=== PATIENT | female | born 1945 | race Caucasian/White ===

== ENCOUNTER 2022-11-25 14:56 | Outpatient (AMB) | payer OTHER, MEDICAID, SELFPAY ==
[2022-11-25 15:04] VITALS: BP 128/80; PULSE 77; O2SAT 97; BMI 25.3
--- NOTE | 2022-11-25 15:04 | A.OFFPC_ITS ---
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 Would like to discuss neurology, audiology and derm referrals, ENT referrals Difficulty Sleeping PMHx: Diabetes, HTN, HLD, Imbalance, Fatty liver, Chronic vertigo, Chronic epigastric pain, Chronic L shoulder pain. Vitamin D deficiency, L shoulder brustitis, R rotator cuff injury SurgHx: Gallbladder FHx: Pt uncertain. Niece: Breast Cancer SocHx: Nonsmoker, quit 2007. R leg weakness & numbness. has appt. with Neurology [facility] Medical History (Updated 11/25/22 @ 17:19 by Yonny Tripathi MD) Anxiety Depression Type 2 diabetes mellitus Surgical History (Updated 11/25/22 @ 15:27 by Sol Tim CMA) No pertinent past surgical history Family History (Updated 11/25/22 @ 15:30 by Sol Tim CMA) Sister Substance abuse Social History Housing: Apartment Patient Tobacco Use Status: Former Tobacco user e-Cigarette/Vaping Use: Never Used service: No Current occupational status: retired Cognitive needs: No Hearing needs: No Vision needs: Yes (needs to have eyes checked.) Questionnaire PHQ-9 Over the last 2 weeks, how often have you been bothered by any of the following problems? 1. Little interest or pleasure in doing things: not at all 2. Feeling down, depressed, or hopeless: nearly every day 3. Trouble falling or staying asleep, or sleeping too much: nearly every day 4. Feeling tired or having little energy: nearly every day 5. Poor appetite or overeating: nearly every day 6. Feeling bad about yourself - or that you are a failure or have let yourself or your family down: not at all 7. Trouble concentrating on things, such as reading the newspaper or watching television: not at all 8. Moving or speaking so slowly that other people could have noticed. Or the opposite - being so fidgety or restless that you have been moving around a lot m ore than usual: not at all [id number] - PHQ-9 Billing: Yes (Patient declines last question at this time.) Source: Developed by Drs. Ej Montiel, Adrianna Moore, Fabio Gastelum and colleagues, with an educational carmen from [email or web address]. Thrive Questionnaire I am a: Patient What is your living situation today?: I have a steady place to live Within the past 12 months, did the food you bought not last and you didn't have the money to get more?: Never true Within the past 12 months, did you worry whether your food would run out before you got money to buy more?: Never true Do you have trouble paying for medicines?: No Do you have trouble getting transportation to medical appointments?: No Do you have trouble paying your heating and electricity bill?: No Do you have trouble taking care of your child, family member or friend?: No Do you have trouble with day-to-day activities such as bathing, preparing meals, shopping, managing finances, etc.?: Yes Are you currently unemployed and looking for a job?: No Are you interested in more education?: No AUDIT C Alcohol Use Questionnaire (AUDIT-C) 1. How often do you have a drink containing alcohol?: Never 3. How often do you have six or more drinks on one occasion?: Never Total Score: 0 HANDY-7 AMB Questionnaire HANDY-7 Feeling nervous, anxious, or on edge: 3 = Nearly every day Not being able to stop or control worryin = Nearly every day Worrying too much about different things: 3 = Nearly every day Trouble relaxin = Nearly every day Being so restless that it is hard to sit still: 3 = Nearly every day Becoming easily annoyed or irritable: 3 = Nearly every day Feeling afraid as if something awful might happen: 3 = Nearly every day Total HANDY-7 score (0-4 normal; 5-9 mild; 10-14 moderate; 15-21 severe): 21 Source: Developed by Drs. Ej Montiel, Adrianna Moore, Fabio Gastelum and colleagues, with an educational carmen from [email or web address]. Physical exam (Primary Care) Vital Signs: Last Vital Signs Pulse 77 11/25/22 15:04 BP 128/80 11/25/22 15:04 Pulse Ox 97 11/25/22 15:04 Oxygen Delivery Method Room Air 11/25/22 15:04 BMI result Body Mass Index 25.3 Tobacco/Smoking Status: Tobacco use Status Tobacco use date assessed 11/25/22 11/25/22 15:15 Patient Tobacco Use Status Former Tobacco user 11/25/22 15:15 e-Cigarette/Vaping Use Never Used 11/25/22 15:15 Assessment and Plan Assessment & Plan (1) Chronic vertigo: Code(s): R42 - Dizziness and giddiness Plan: Patient says that she has had numerous rounds of vestibular rehab/physical therapy and was recommended to see ENT Referred to ENT (2) Imbalance: Code(s): R26.89 - Other abnormalities of gait and mobility Plan: Likely multifactoral; appears to have radicular symptoms on right low back and right leg with weakness and numbness. She notes that she has had EMG testing in the past though she does not know the results. Also as above has vertigo She has an appointment with Neurology. Will request office note (3) Type 2 diabetes mellitus: Code(s): E11.9 - Type 2 diabetes mellitus without complications Plan: Check labs (4) Hypertension: Code(s): I10 - Essential (primary) hypertension Plan: Blood pressure appears controlled (5) Fall: Code(s): W19.XXXA - Unspecified fall, initial encounter Plan: As above, frequent falls and imbalance Follow-up with Neurology (6) Diabetic neuropathy: Code(s): E11.40 - Type 2 diabetes mellitus with diabetic neuropathy, unspecified Plan: May have some diabetic neuropathy however the unilateral nature of her numbness and weakness in right lower extremity appears distinct from diabetic neuropathy. Will monitor and control diabetes (7) Lower extremity weakness: Code(s): R29.898 - Other symptoms and signs involving the musculoskeletal system Plan: As above, patient should follow-up with Neurology May benefit from physical therapy and we can discuss after her visit with Neurology (8) Difficulty sleeping: Code(s): G47.9 - Sleep disorder, unspecified Plan: Trial trazodone (9) Laboratory exam ordered as part of routine general medical examination: Code(s): Z00.00 - Encounter for general adult medical examination without abnormal findings Plan: Check labs Orders: Orders Comprehensive [place]. Panel Fast Today Z00.00 - Encounter for general adult medic al examination without abnormal findings Lipid Panel Today Z00.00 - Encounter for general adult medical examination without abnormal findings TSH reflex Free T4 Today Z00.00 - Encounter for general adult medical examination without abnormal findings Microalbumin, Random (w Creat) Today I10 - Essential (primary) hypertension Complete Blood Count Auto Diff Today Z00.00 - Encounter for general adult medical examination without abnormal findings UA and rflx microscopic Today Z00.00 - Encounter for general adult medical examination without abnormal findings Hemoglobin A1c Today R73.01 - Impaired fasting glucose Erythrocyte Sedimentation Rate Today M35.3 - Polymyalgia rheumatica Referrals Ear/Nose/Throat Referral R42 - Dizziness and giddiness Audiology Referral H91.90 - Unspecified hearing loss, unspecified ear Medications: New sitagliptin phosphate (Januvia) 100 mg PO DAILY 90 tabs 2RF 90 days sertraline 75 mg (1.5 x 50 mg) PO DAILY 90 days 135 tabs 2RF pravastatin 20 mg PO BEDTIME 90 days 90 tabs 2RF metformin 1,000 mg PO BID 180 tabs 3RF 90 days lisinopril 2.5 mg PO DAILY 90 days 90 tabs 3RF trazodone 50 mg PO BEDTIME PRN 30 tabs 0RF sleep 30 days nut.tx.gluc.intol,lac-free,soy (Glucerna oral liquid) 1 ea PO BID 7,110 mL 3RF 30 days Coding Level of Care Code New Pt Level 4 (74265) Diagnoses Chronic vertigo R42 Imbalance R26.89 Type 2 diabetes mellitus E11.9 Hypertension I10 Fall W19.XXXA Diabetic neuropathy E11.40 Lower extremity weakness R29.898 Difficulty sleeping G47.9 Laboratory exam ordered as part of routine general medical examination Z00.00
== END 2022-11-25 16:17 | disposition home or self-care (01) ==
PROVIDERS: PCP Family Medicine; Visit Provider Family Medicine
DX: R42 Dizziness and giddiness (principal); R26.89 Other abnormalities of gait and mobility; I10 Essential (primary) hypertension; W19.XXXA Unspecified fall, initial encounter; E11.40 Type 2 diabetes mellitus with diabetic neuropathy, unspecified; R29.898 Other symptoms and signs involving the musculoskeletal system; G47.9 Sleep disorder, unspecified; Z00.00 Encounter for general adult medical examination without abnormal findings
CPT/HCPCS: 99204

== ENCOUNTER 2023-01-27 11:00 | Outpatient (REF) | payer OTHER, MEDICAID, SELFPAY ==
[2023-01-27 14:17] LABS: MANUAL DIFF FLAG NO
[2023-01-27 14:21] LABS: Basophils Absolute Auto 0.1 X10*3/uL (0.0-0.2); Basophils Percent Auto 1.1 % (0-2); Eosinophils Absolute Auto 0.2 X10*3/uL (0.0-0.4); Eosinophils Percent Auto 2.8 % (0-4); Hematocrit 37.2 % (37.0-47.0); Imm Gran Abs Auto 0.04 X10*3/uL (0.00-0.03); Imm Gran Pct Auto 0.5 % (0.0-0.4); Lymphocytes Absolute Auto 1.8 X10*3/uL (1.2-4.9); Lymphocytes Percent Auto 23.8 % (20-40); Mean Corpuscular HGB Conc 32.3 g/dl (31.0-35.0); Mean Corpuscular Volume 89.9 fL (80.0-98.0); Mean Platelet Volume 10.5 fL (9.4-12.3); Monocytes Absolute Auto 0.5 X10*3/uL (0.1-1.2); Monocytes Percent Auto 6.6 % (2-11); Neutrophils Absolute Auto 4.9 x10*3/uL (2.0-8.3); Neutrophils Percent Auto 65.2 % (45-73); Platelet Count 222 X10*3/uL (160-400); Red Blood Count 4.14 X10*6/uL (4.20-5.50); Red Cell Distribution Width 12.6 % (11.0-16.0); White Blood Count 7.6 X10*3/uL (4.8-10.8)
[2023-01-27 14:41] LABS: Estimated Average Glucose 151 mg/dL; Hemoglobin A1c % 6.9 % (<6.0)
[2023-01-27 14:55] LABS: Alanine Aminotransferase 10 U/L (0-31); Albumin Level 4.2 g/dL (3.5-5.0); Alkaline Phosphatase 62 U/L (39-117); Anion Gap 13 (12-20); Aspartate Amino Transferase 16 U/L (5-31); Bilirubin Total 0.3 mg/dL (0.0-1.0); Blood Urea Nitrogen 11 mg/dL (9-16); Calcium 9.5 mg/dL (8.4-10.2); Carbon Dioxide 23 mmol/L (22-29); Chloride 108 mmol/L (96-108); Cholesterol 162 mg/dL (<200); Estimated Glomerular Filt Rate > 60; Glucose Fasting 206 mg/dL (60-99); HDL Cholesterol 52 mg/dL (>40); LDL Cholesterol Calculated 82 mg/dL (<100); Potassium 4.2 mmol/L (3.3-5.1); Sodium 140 mmol/L (135-145); Total Protein 6.8 g/dL (6.5-8.0); Triglycerides 141 mg/dL (<150)
[2023-01-27 15:03] LABS: TSH reflex Free T4 1.66 uIU/mL (0.32-4.0)
[2023-01-27 15:06] LABS: Erythrocyte Sedimentation Rate 36 MM/HR (0-20)
== END 2023-01-27 11:01 | disposition home or self-care (01) ==
LOC: HO.WFDLDS 11:00
PROVIDERS: Visit Provider Family Medicine
DX: Z00.00 Encounter for general adult medical examination without abnormal findings (principal); R73.01 Impaired fasting glucose; M35.3 Polymyalgia rheumatica; M54.2 Cervicalgia; R51.9 Headache, unspecified
CPT/HCPCS: 36415; 80053; 80061; 83036; 84443; 85025; 85652

== ENCOUNTER 2023-02-01 14:08 | Outpatient (AMB) | payer OTHER, SELFPAY ==
[2023-02-01 14:12] VITALS: BP 122/72; PULSE 76; O2SAT 96; BMI 26.2
--- NOTE | 2023-02-01 14:12 | MHC.PC.OV ---
Vital Signs 02/01/23 14:12 Height 5 ft 3 in Weight 148 lb BMI 26.2 BP 122/72 Blood Pressure Location Lt brachial Position Sitting Pulse 76 Pulse Source Pulse Oximeter Pulse Oximetry (%) 96 Intake Visit Reasons: CPE with f/u labs and health maintenance Intake Note: Patient is here for her physical today. Allergies codeine Allergy (Unknown, Verified 02/01/23 14:15) Unknown Medication List - Last Reconciled 02/01/23 by Yonny Tripathi MD blood sugar diagnostic (FreeStyle Lite Strips) As directed blood-glucose meter (FreeStyle Lite Meter kit) As directed lisinopril 2.5 mg PO DAILY 90 days melatonin-lemon balm leaf extr 10-1 mg 1 tab PO BEDTIME PRN metformin 1,000 mg PO BID 90 days nut.tx.gluc.intol,lac-free,soy (Glucerna oral liquid) 1 ea PO BID 30 days pravastatin 20 mg PO BEDTIME 90 days sertraline 75 mg (1.5 x 50 mg) PO DAILY 90 days sitagliptin phosphate (Januvia) 100 mg PO DAILY 90 days trazodone 50 mg PO BEDTIME PRN 30 days Tobacco use date assessed: 02/01/23 Fall risk assessment: 2 + Falls in past year Last assessed Fall Risk: 02/01/23 HPI CPE with f/u labs and health maintenance HPI Details 77 y/o female presents for a CPE with f/u labs and health maintenance. Labs were drawn 01/27/23. Reviewed labs with pt. Elevated fasting glucose of 206 and A1c 6.9%. She is on metformin 1000mg b.i.d. Triglycerides 141. TC 162. LDL 82. HDL 52. [facility] Medical History (Updated 02/01/23 @ 15:01 by Carmelo Carlisle) Type 2 diabetes mellitus Anxiety Depression Surgical History (Updated 11/25/22 @ 15:27 by Sol Tim CMA) No pertinent past surgical history Family History (Updated 11/25/22 @ 15:30 by Sol Tim CMA) Sister Substance abuse Social History Housing: Apartment Patient Tobacco Use Status: Former Tobacco user e-Cigarette/Vaping Use: Never Used service: No Current occupational status: retired Cognitive needs: No Hearing needs: No Vision needs: Yes (needs to have eyes checked.) Review of Systems Const Denies chills, Denies fatigue, Denies fever(s), Denies headache(s) and Denies weakness Eyes Denies change in vision ENT Denies dizziness, Denies headache(s), Denies hearing loss, Denies nasal congestion, Denies sinus pain, Denies sinus pressure and Denies sore throat Card Denies chest pain, Denies lightheadedness, Denies dyspnea and Denies other (palpitations) Resp Denies cough, Denies dyspnea and Denies wheezing GI Denies abdominal pain, Denies melena, Denies hematochezia, Denies change in bowel habits, Denies dyspepsia and Denies nausea Denies hematuria and Denies dysuria Musc Denies abnormal gait, Denies myalgias, Denies arthralgias, Denies numbness and Denies tingling Skin/Breast Denies rash, Denies unusual bruising and Denies wounds Neuro Denies abnormal gait, Denies dizziness, Denies headache(s), Denies memory loss, Denies numbness, Denies Sensory deficit (Neuro), Denies tingling and Denies weakness Psych Denies anxiety, Denies depression and Denies memory loss Endo Denies cold intolerance, Denies fatigue, Denies heat intolerance, Denies polydipsia and Denies polyuria Froilan/Lymph Denies easy bleeding and Denies easy bruising Aller/Immun Denies wheezing Physical exam (Primary Care) Vital Signs: Last Vital Signs Pulse 76 02/01/23 14:12 BP 122/72 02/01/23 14:12 Pulse Ox 96 02/01/23 14:12 BMI result Body Mass Index 26.2 Tobacco/Smoking Status: Tobacco use Status Tobacco use date assessed 02/01/23 02/01/23 14:16 Patient Tobacco Use Status Former Tobacco user 02/01/23 14:16 e-Cigarette/Vaping Use Never Used 02/01/23 14:16 Const General: no acute distress, well developed, alert and awake Nutritional Appearance: well nourished Orientation/consciousness: patient oriented x3 HENMT Head: Yes normocephalic and Yes atraumatic Ears: hearing grossly normal bilaterally and TM's normal bilaterally General nose exam: Normal external nose present and Normal nares present Mouth: Normal oral and palatal mucosa present and moist mucous membranes Teeth and gingiva: dentition normal Throat: Yes posterior oropharynx normal Eyes General: appearance normal, both eyes and all related structures Pupils: Equal, round and reactive pupils present and Pupil accommodation reflex normal EOM: EOMs intact bilaterally Neck Neck: Yes normal visual inspection, Yes no lymphadenopathy and Yes trachea midline Thyroid: Thyroid normal Carotids: no bruits Lymphatic: no lymphadenopathy noted Chest Chest palpation & inspection: normal inspection of the chest Resp Effort & Inspection: normal respiratory effort Auscultation: clear to auscultation bilaterally Cardio Rate: regular rate Rhythm: regular rhythm Heart sounds: S1 normal heart sound present, S2 normal heart sound present, no gallops, no murmurs and no rubs Bruits: no abdominal aortic bruits and no carotid bruits GI Palpation (GI): No Abdominal aortic bruit present, Soft to palpation, nontender, No hepatosplenomegaly present and No Rebound tenderness present Auscultation: normal bowel sounds General: Yes no CVA tenderness Back/Spine/Pelvis Back: no CVA tenderness Cervical Spine: cervical ROM normal and No Cervical spine tenderness Thoracic/Lumbar Spine: thoraco-lumbar ROM normal, No pain with thoraco-lumbar ROM, No thoracic spinal tenderness and No lumbar spinal tenderness Skin Lesions: no lesions Rashes: no rashes Trauma: no lacerations or abrasions Wounds: no wounds Nails: normal Neuro General: patient oriented x3 Cranial nerves: Yes Equal, round and reactive pupils present Cognition (Neuro): normal cognition Gait exam (Neuro): Normal gait present Motor exam (neuro): 5/5 motor strength present throughout Sensory Exam: No Sensory deficit (Neuro) Deep tendon reflexes (DTR's): Right patellar reflex intensity grade: 2+ and Left patellar reflex intensity grade: 2+ Extrem General: Yes normal to inspection and No edema Psych Appearance: grossly normal Affect: normal affect Attitude: cooperative Thought process: Normal thought process present Assessment and Plan Assessment & Plan (1) Adult general medical exam: Code(s): Z00.00 - Encounter for general adult medical examination without abnormal findings Plan: 77-year-old female presents for complete physical exam Encouraged healthy diet with active lifestyle and plenty of exercise as tolerated (2) Type 2 diabetes mellitus: Code(s): E11.9 - Type 2 diabetes mellitus without complications Plan: A1c 6.9% which is at top of controlled range. Goal is less than 7.0% Continue current medication (3) Hypertension: Code(s): I10 - Essential (primary) hypertension Plan: Blood pressure is controlled. Goal is less than 140/90 Continue current medications (4) Screening for colon cancer: Code(s): Z12.11 - Encounter for screening for malignant neoplasm of colon Plan: No recent colonoscopy. She would like a Cologuard test. If positive will discuss referral for colonoscopy. (5) Breast cancer screening by mammogram: Code(s): Z12.31 - Encounter for screening mammogram for malignant neoplasm of breast Plan: Patient declines mammogram (6) Back pain: Code(s): M54.9 - Dorsalgia, unspecified Plan: Ongoing low back pain with lower extremity weakness She has an appointment with Neurology. I am referring for for physical therapy We can follow-up in 1 month She can use some ibuprofen OTC, sparingly (7) Lower extremity weakness: Code(s): R29.898 - Other symptoms and signs involving the musculoskeletal system Plan: As above, referred for physical therapy (8) Screening for osteoporosis: Code(s): Z13.820 - Encounter for screening for osteoporosis Plan: Recent x-ray showed osteopenia. No recent bone density test for osteoporosis. Ordered Orders: Orders XR DEXA axial skeleton Today M54.9 - Dorsalgia, unspecified, Z13.820 - Encounter for screening for osteoporosis PT Evaluation and Treatment Today M54.9 - Dorsalgia, unspecified, R26.89 - Other abnormalities of gait and mobility, R29.898 - Other symptoms and signs involving the musculoskeletal system Referrals Cologuard Test Z12.11 - Encounter for screening for malignant neoplasm of colon, Z12.12 - Encounter for screening for malignant neoplasm of rectum Coding Level of Care Code Est Pt Level 4 (75681) Est Pt Prev Care >65y(67923) Diagnoses Adult general medical exam Z00.00 Type 2 diabetes mellitus E11.9 Hypertension I10 Screening for colon cancer Z12.11 Breast cancer screening by mammogram Z12.31 Back pain M54.9 Lower extremity weakness R29.898 Screening for osteoporosis Z13.820
== END 2023-02-01 15:08 | disposition home or self-care (01) ==
PROVIDERS: PCP Family Medicine; Visit Provider Family Medicine
DX: Z00.00 Encounter for general adult medical examination without abnormal findings (principal); E11.9 Type 2 diabetes mellitus without complications; I10 Essential (primary) hypertension; M54.9 Dorsalgia, unspecified; R29.898 Other symptoms and signs involving the musculoskeletal system; Z13.820 Encounter for screening for osteoporosis
CPT/HCPCS: 99397

== ENCOUNTER 2023-04-13 14:36 | Outpatient (AMB) | payer OTHER, SELFPAY ==
[2023-04-13 14:59] VITALS: BP 122/80; PULSE 74; O2SAT 97; BMI 26.5
--- NOTE | 2023-04-13 14:59 | A.OFFPC_ITS ---
Vital Signs 04/13/23 14:59 Height 5 ft 3 in Weight 149 lb 8 oz BMI 26.5 BP 122/80 Blood Pressure Location Lt brachial Position Sitting Pulse 74 Pulse Source Pulse Oximeter Pulse Oximetry (%) 97 Oxygen Delivery Method Room Air Intake Visit Reasons: f/u low back pain Intake Note: Patient is here to follow up on low back pain, and she has paperwork from [facility]. Allergies codeine Allergy (Unknown, Verified 02/01/23 14:15) Unknown Tobacco use date assessed: 02/01/23 HPI f/u low back pain HPI Details 77 y/o female presents to f/u low back p ain with LE weakness. Also f/u bone density testing and Cologuard. She has paperwork from the [facility]. Pt also reports hand pain and states it occasionally locks up. She has been using ibuprofen for her back. [facility] Medical History (Updated 04/13/23 @ 16:06 by Carmelo Carlisle) Type 2 diabetes mellitus Anxiety Depression Surgical History (Updated 11/25/22 @ 15:27 by Sol Tim [facility]) No pertinent past surgical history Family History (Updated 11/25/22 @ 15:30 by Sol Tim CMA) Sister Substance abuse Social History Housing: Apartment Patient Tobacco Use Status: Former Tobacco user e-Cigarette/Vaping Use: Never Used service: No Current occupational status: retired Cognitive needs: No Hearing needs: No Vision needs: Yes (needs to have eyes checked.) Review of Systems Const Denies chills, Denies fatigue, Denies fever(s), Denies headache(s) and Denies weakness ENT Denies dizziness and Denies headache(s) Card Denies chest pain, Denies lightheadedness, Denies dyspnea and Denies other (Palpitations) Resp Denies cough, Denies dyspnea, Denies wheezing and Denies other ( shortness of breath) Musc Details: Hand pain Reports back pain, Denies numbness and Denies tingling Neuro Denies dizziness, Denies headache(s), Denies numbness, Denies tingling, Denies paresthesias and Denies weakness Psych Denies anxiety and Denies depression Endo Denies fatigue Aller/Immun Denies wheezing Physical exam (Primary Care) Vital Signs: Last Vital Signs Pulse 74 11/29/23 14:59 BP 122/80 04/13/23 14:59 Pulse Ox 97 04/13/23 14:59 Oxygen Delivery Method Room Air 04/13/23 14:59 BMI result Body Mass Index 26.5 Tobacco/Smoking Status: Tobacco use Status Tobacco use date assessed 02/01/23 04/13/23 15:07 Patient Tobacco Use Status Former Tobacco user 04/13/23 15:07 e-Cigarette/Vaping Use Never Used 04/13/23 15:07 Const General: no acute distress and well developed Nutritional Appearance: well nourished Orientation/consciousness: patient oriented x3 HENMT Head: Yes normocephalic and Yes atraumatic Eyes General: appearance normal, both eyes and all related structures Pupils: Equal, round and reactive pupils present EOM: EOMs intact bilaterally Resp Effort & Inspection: normal respiratory effort Auscultation: clear to auscultation bilaterally Cardio Rate: regular rate Rhythm: regular rhythm Heart sounds: S1 normal heart sound present, S2 normal heart sound present, no gallops, no murmurs and no rubs Neuro General: patient oriented x3 and gait normal Cranial nerves: Yes Equal, round and reactive pupils present Psych Affect: normal affect Assessment and Plan Assessment & Plan (1) Back pain: Code(s): M54.9 - Dorsalgia, unspecified Plan: Ongoing?back?pain MRI?from?2020?shows?degenerative?changes?and?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 She?has?also?seen?new[facility]?and?note?discusses?lumbar?spondylolysi s?and?poss ible?stenosis.??They?recommended?Tylenol,?NSAIDs,?physical?therapy?as?well?as?in jection?therapy?with?possible?surgical?intervention?in?the?future. She?has?had?EMGs?in?the?past?which?were?positive?for? neuropathy?and?she?has?some?lower?extremity?weakness?as?well?as?decreased?balanc e. I?have?made?a?referral?to?neurology I?had?referred?her?to?physical?therapy?in?I?still?agree?that?this?could?be?helpf ul?and?improve?some?of?her?symptoms. Recommend?ongoing?NSAIDs?and?Tylenol She?may?benefit?from?injection?therapy. Will?fill?out?her?handicap?placard?for?12?months.??If?not?improving?with?the?abo ve,?she?will?likely?need?permanent?handicap?placard. (2) Lower extremity weakness: Code(s): R29.898 - Other symptoms and signs involving the musculoskeletal system Plan: As?above (3) Imbalance: Code(s): R26.89 - Other abnormalities of gait and mobility Plan: As?above (4) Hand pain: Code(s): M79.643 - Pain in unspecified hand Plan: Significant?hand?pain?and?joint?deformities. She?notes?a?prior?diagnosis?of?psoriatic?arthritis. Unclear?if?this?was?a?confirmed?diagnosis. Referring?her?to?Rheumatology?for?polyarthralgias?and?hand?pain (5) Polyarthralgia: Code(s): M25.50 - Pain in unspecified joint Plan: Referred?to?Rheumatology (6) Positive colorectal cancer screening using Cologuard test: Code(s): R19.5 - Other fecal abnormalities (7) Spondylolysis: Code(s): M43.00 - Spondylolysis, site unspecified Plan: As?above Orders: Referrals Rheumatology Referral M25.50 - Pain in unspecified joint, M79.643 - Pain in unspecified hand Gastroenterology Referral R19.5 - Other fecal abnormalities Coding Level of Care Code Est Pt Level 4 (60381) Diagnoses Back pain M54.9 Lower extremity weakness R29.898 Imbalance R26.89 Hand pain M79.643 Polyarthralgia M25.50 Positive colorectal cancer screening using Cologuard test R19.5 Spondylolysis M43.00
== END 2023-04-13 16:43 | disposition home or self-care (01) ==
PROVIDERS: PCP Family Medicine; Visit Provider Family Medicine
DX: M54.9 Dorsalgia, unspecified (principal); R29.898 Other symptoms and signs involving the musculoskeletal system; R26.89 Other abnormalities of gait and mobility; M79.643 Pain in unspecified hand; M25.50 Pain in unspecified joint; R19.5 Other fecal abnormalities; M43.00 Spondylolysis, site unspecified
CPT/HCPCS: 99214

== ENCOUNTER 2023-06-10 14:52 | Outpatient (AMB) | payer OTHER, SELFPAY ==
--- NOTE | 2023-06-10 14:54 | A.OFFVIS_ITS ---
Intake Vital Signs 06/10/23 14:59 Height 5 ft 3 in Weight 149 lb 0.52 oz BMI 26.4 BP 100/70 Blood Pressure Location Rt brachial Position Sitting Pulse 75 Pulse Source Pulse Oximeter Temp 97 F Temp Source Skin Pulse Oximetry (%) 96 Oxygen Delivery Method Room Air Intake Visit Reasons: Joint Pain Intake Note: New patient, internally referred, presents to office today for joint pain. 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 c/o hand pain for a few years, worsening now. 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 Velasco, 77 yoF presents for evaluation for hand pain and lower back pain upon referral from her PCP. She has a medical history of T2DM, osteoporosis and hypercholestermia and vertigo. She has had pain in multiple joints for many years but her lower back pain had been worsening. In addition, her index finger get tuck and she has to use the other hand to release them and it is very painful. She has never been to a Rheumatology but has had cortisone injections to her shoulders. The sides of her thighs are also numb. The vertigo causes her to fall out without warning. She is now on medication that seems to help and has an upcoming appointment with the ENT. She also had a recent outbreak of shingles on the right side of her face and was treated in ER and given topical to apply at home. The rash has resolved and she has no after effects at this time. She denies symptoms of CTD and inflammatory arthritis. [facility] Medical History (Updated 06/10/23 @ 16:35 by DINO Story) DDD (degenerative disc disease), lumbosacral Lumbar spondylitis Chronic lower back pain Bilateral hand pain Type 2 diabetes mellitus Anxiety Depression Surgical History (Updated 11/25/22 @ 15:27 by Sol Tim CMA) No pertinent past surgical history Family History Sister Substance abuse Social History (Updated 06/10/23 @ 15:03 by MANDY Carrillo) Housing: Apartment Alcohol intake: never Patient Tobacco Use Status: Former Tobacco user e-Cigarette/Vaping Use: Never Used service: No Current occupational status: retired Cognitive needs: No Hearing needs: No Vision needs: Yes (needs to have eyes checked.) Female Reproductive History Menstrual Total pregnancies: 2 Review of Systems Const All systems reviewed & are unremarkable except as noted in HPI and below Physical Exam Vital Signs: Last Vital Signs Temp 97 F 06/10/23 14:59 Pulse 75 06/10/23 14:59 BP 100/70 06/10/23 14:59 Pulse Ox 96 06/10/23 14:59 Oxygen Delivery Method Room Air 06/10/23 14:59 BMI result Body Mass Index 26.4 APPEARANCE: Patient in no acute distress EYES no redness, pupils equal and reactive to light, eyelids normal EARS:? External ear normal, canal clear and tympanic membrane normal. NOSE/SINUS:? Airflow through both nares, no nasal discharge, no bleeding THROAT:? Oral mucosa moist, no ulcerations NECK:? No thyromegaly or masses, no adenopathy, trachea midline. HEART:? Regular rhythm, S1-S2 heard, no murmurs, rubs or gallops. LUNG:? Clear to percussion and auscultation ABD:? Normal bowel sounds, no organomegaly, masses or tenderness. EXTREMITIES:? No edema, no calf tenderness, normal peripheral pulses. NEURO:? Oriented and alert x3.? No focal weakness.? Reflexes symmetric.? Gait normal. SKIN:? There are no skin lesions evident. No objective signs of Raynaud's phenomenon. JOINT EXAM: ?? Cervical Spine:.? Full range of motion without pain; no tenderness. Thoracic Spine:.? No scoliosis.? Some tenderness on palpation. Lumbar Spine:.? Alignment normal.? Full range of motion with pain in paraspinal muscles, mild tenderness. Chest Wall:.? No tenderness, swelling, increased warmth or erythema. Hands:.? Normal pain-free range of motion without tenderness, swelling, increased warmth or erythema. Able to make a full fist and has a good supervisor mixing strength. Marked tenderness to palmar palpation at #2 MCP joints with lump to left. Heberden nodes across DIPs nontender. Wrists:.? Normal pain-free range of motion without tenderness, swelling, increased warmth or erythema. Elbows:. Normal pain-free range of motion without tenderness, swelling, increased warmth or erythema. Shoulders:.?? Full range of motion without pain. No tenderness, weakness, swelling, increased warmth or erythema. Hips:.? Full range of motion without pain. Hip bursa:.? No tenderness. Knees:.?? Normal pain-free range of motion without tenderness, swelling, increased warmth or erythema.? There is no effusion or crepitation Ankles:.? Normal pain-free range of motion without tenderness, swelling, increased warmth or erythema. Feet:.? Normal pain-free range of motion without tenderness, swelling, increased warmth or erythema. Tender points:? No tenderness to digital palpation at the occiput, trapezius, second rib, lateral epicondyle, knees, greater trochanter and gluteal area bilaterally. Assessment & Plan Assessment & Plan (1) Bilateral hand pain: Code(s): M79.641 - Pain in right hand; M79.642 - Pain in left hand (2) Chronic lower back pain: Code(s): M54.50 - Low back pain, unspecified; G89.29 - Other chronic pain Qualifiers: Back pain laterality: bilateral Sciatica presence: without sciatica Qualified Code(s): M54.50 - Low back pain, unspecified; G89.29 - Other chronic pain (3) DDD (degenerative disc disease), lumbosacral: Code(s): M51.37 - Other intervertebral disc degeneration, lumbosacral region Plan #Bilateral Hand Pain: There is marked tenderness to #2 MCP suggesting trigger finger. Patient does not want an injection at this time. We will try the diclofenac gel with glove and message application to see if that will offer relief. She will do this at night and wear the gloves. She agrees if it does not improve in two weeks she will consider the injection. I will also obtain Xrays to assess the extent of the OA and see if there are inflammatory features to suggest and inflammatory arthritis. The patient has longstanding T2DM and this can be a consequence indicating possible onset of Dupuytrens. There is mild thickening of the flexor tendons on the right middle finger. #Lower Back Pain/DDD. Xrays does indicate Moderate OA along her spine. She has been referred to PT and I have encouraged her to go. She wants to get the vertigo concern settled first becaise of the risk for fall. I encouraged her that PT can help to strengthen the paraspinal muscles. I have also prescribed Lidocaine patches 5% to use on her lower back Q12 hrs. She can also use a back brace for doing activities around the house such as standing to do dishes which causes much discomfort. I hope this provide some relief. I will obtain labs to assess ESR/CRP and also rule out RF/CCP. Patient will do labs and xrays at [facility] I will see patient in 3 weeks. I spent 45 minutes reviewing chart, evaluating patient, ordering and documenting Orders: Orders XR hand RT min 3V Today M79.641 - Pain in right hand, M79.642 - Pain in left hand XR hand LT min 3V Today M79.641 - Pain in right hand, M79.642 - Pain in left hand Complete Blood Count Auto Diff Today M79.641 - Pain in right hand, M79.642 - Pain in left hand Comprehensive Met. Panel Today M79.641 - Pain in right hand, M79.642 - Pain in left hand C Reactive Protein Today M79.641 - Pain in right hand, M79.642 - Pain in left hand Erythrocyte Sedimentation Rate Today M79.641 - Pain in right hand, M79.642 - Pain in left hand Cyclic Citrullinated Peptide Today M79.641 - Pain in right hand, M79.642 - Pain in left hand Rheumatoid Factor Today M79.641 - Pain in right hand, M79.642 - Pain in left hand Medications: New lidocaine 5% leave on most painful area of lower back for up to 12 hrs 2 patches topical DAILY 30 ea 1RF diclofenac sodium 1% apply to hand/Massage; for hand includes palm/fingers/back of hand 2 grams topical BID 100 grams 1RF M79.641 - Pain in right hand, M79.642 - Pain in left hand back brace As directed 1 ea 0RF Apply for daily activities as needed G89.29 - Other chronic pain, M54.50 - Low back pain, unspecified Coding Level of Care Code New Pt Level 4 (88482) Diagnoses Bilateral hand pain M79.641; M79.642 Chronic bilateral low back pain without sciatica M54.50; G89.29 Back pain laterality: bilateral Sciatica presence: without sciatica DDD (degenerative disc disease), lumbosacral M51.37
[2023-06-10 14:59] VITALS: BP 100/70; PULSE 75; TEMP 36.1; O2SAT 96; BMI 26.4
== END 2023-06-10 15:59 | disposition home or self-care (01) ==
PROVIDERS: PCP Family Medicine; Visit Provider Nurse Practitioner Family
DX: M79.641 Pain in right hand (principal); M79.642 Pain in left hand; M54.50 Low back pain, unspecified; G89.29 Other chronic pain; M51.37 Other intervertebral disc degeneration, lumbosacral region
CPT/HCPCS: 99204

== ENCOUNTER → 2023-06-10 14:52 | Outpatient (BNVA) | payer OTHER, SELFPAY | PROVIDERS: PCP Family Medicine; Visit Provider Nurse Practitioner Family ==

== ENCOUNTER 2023-09-16 13:09 | Outpatient (AMB) | payer OTHER, SELFPAY ==
--- NOTE | 2023-09-16 13:15 | MHC.PC.OV ---
Vital Signs 09/16/23 13:16 Height 5 ft 3 in Weight 146 lb 8 oz BMI 25.9 BP 106/60 Blood Pressure Location Rt brachial Position Sitting Respiration 14 Pulse 86 Pulse Source Pulse Oximeter Temp 97.9 F Temp Source Temporal Artery Scan Pulse Oximetry (%) 97 Oxygen Delivery Method Room Air Intake Visit Reasons: follow up diabetes Intake Note: Patient would like a new script sent for meclizine for 90 days if possible. 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 Accompanied by: Self / Same As Patient Allergies codeine Allergy (Unknown, Verified 09/16/23 13:24) Unknown Medication List - Last Reconciled 09/16/23 by Yonny Tripathi MD back brace As directed blood sugar diagnostic (FreeStyle Lite Strips) As directed blood-glucose meter (FreeStyle Lite Meter kit) As directed diclofenac sodium 1% 2 grams topical BID lisinopril 2.5 mg PO DAILY 90 days meclizine 25 mg PO DAILY PRN 30 days melatonin-lemon balm leaf extr 10-1 mg 1 tab PO BEDTIME PRN metformin 1,000 mg PO DAILY nut.tx.gluc.intol,lac-free,soy (Glucerna oral liquid) 1 ea PO BID 30 days pravastatin 20 mg PO BEDTIME 90 days sertraline 75 mg (1.5 x 50 mg) PO DAILY 90 days sitagliptin phosphate (Januvia) 100 mg PO DAILY 90 days Tobacco use date assessed: 09/16/23 Fall risk assessment: 2 + Falls in past year Last assessed Fall Risk: 09/16/23 Dental Screening Dental Screen Date: 09/16/23 Did you have a dental visit in the last 12 months?: No Did you have a dental problem in the last 6 months where you did not have access to dental care?: No Was dental information given to patient?: Patient declined HPI follow up diabetes HPI Details 78 y/o female presents to f/u diabetes. Last A1c in January 6.9%. A1c today 09/16/23 is 8.1%. She is on metformin 1000mg, Januvia 100mg daily. Pt notes morning blood sugars have been in the 130s. PM blood sugars after dinner up to 140s. Pt has chronic vertigo - requests script for meclizine. [facility] Medical History DDD (degenerative disc disease), lumbosacral Lumbar spondylitis Chronic lower back pain Bilateral hand pain Type 2 diabetes mellitus Anxiety Depression Surgical History No pertinent past surgical history Family History Sister Substance abuse Social History Housing: Apartment Alcohol intake: never Patient Tobacco Use Status: Former Tobacco user e-Cigarette/Vaping Use: Never Used service: No Current occupational status: retired Cognitive needs: No Hearing needs: No Vision needs: No (needs to have eyes checked.) Review of Systems Const Denies chills, Denies fatigue, Denies fever(s), Denies headache(s) and Denies weakness ENT Denies dizziness and Denies headache(s) Card Denies dyspnea Resp Denies cough, Denies dyspnea, Denies wheezing and Denies other (shortness of breath) Musc Denies numbness and Denies tingling Neuro Denies dizziness, Denies headache(s), Denies numbness, Denies tingling and Denies weakness Psych Denies anxiety and Denies depression Endo Denies fatigue Aller/Immun Denies wheezing Physical exam (Primary Care) Vital Signs: Last Vital Signs Temp 97.9 F 09/16/23 13:16 Pulse 86 09/16/23 13:16 Resp 14 09/16/23 13:16 BP 106/60 09/16/23 13:16 Pulse Ox 97 09/16/23 13:16 Oxygen Delivery Method Room Air 09/16/23 13:16 BMI result Body Mass Index 25.9 Tobacco/Smoking Status: Tobacco use Status Tobacco use date assessed 09/16/23 09/16/23 13:29 Patient Tobacco Use Status Former Tobacco user 09/16/23 13:16 e-Cigarette/Vaping Use Never Used 09/16/23 13:16 Const General: well developed; No acute distress Nutritional Appearance: well nourished Orientation/consciousness: patient oriented x3 HENMT Head: Yes normocephalic and Yes atraumatic Eyes General: appearance normal, both eyes and all related structures Pupils: Equal, round and reactive pupils present EOM: EOMs intact bilaterally Resp Effort & Inspection: normal respiratory effort Auscultation: clear to auscultation bilaterally Cardio Rate: regular rate Rhythm: regular rhythm Heart sounds: S1 normal heart sound present, S2 normal heart sound present, no gallops, no murmurs and no rubs Neuro General: patient oriented x3 and gait normal Cranial nerves: Yes Equal, round and reactive pupils present Psych Affect: normal affect Results AMB Hemoglobin A1c AMB Hemoglobin A1c 8.1 % Last Edit by ADI Hernandez on 09/16/23 13:52 Assessment and Plan Assessment & Plan (1) Type 2 diabetes mellitus: Code(s): E11.9 - Type 2 diabetes mellitus without complications Plan: A1c?climbed?significantly?to?over?8%. She?is?taking?metformin,?Januvia?and?had?tried?glipizide?in?the?past. Will?add?a?small?amount?of?glipizide?as?well She?notes?that?she?has?had?a?lot?of?dietary?indiscretions?with?carbohydrates. Encouraged?her?to?work?on?a?diabetic?diet?low?in?sugars?and?starches Will?follow-up?in?3?month (2) Chronic vertigo: Code(s): R42 - Dizziness and giddiness Plan: Her?neurologist?had?given?her?meclizine Will?refill?this Advised?she?try?holidays?from?this?medication?when?she?is?feeling?okay (3) Chronic lower back pain: Code(s): M54.50 - Low back pain, unspecified; G89.29 - Other chronic pain Qualifiers: Back pain laterality: bilateral Sciatica presence: without sciatica Qualified Code(s): M54.50 - Low back pain, unspecified; G89.29 - Other chronic pain Plan: Ongoing?chronic?low?back?pain.??She?was?seen?by?rheumatology?and?rheumatology?has?ordered?laboratory?workup?but?patient?was?unaware?of?this?and?has?not?had?a?drawn?yet.??Also?does?not?seem?to?have?an?appointment?for?follow-up?with?rheumatology. Advised?she?contact?Rheumatology?to?inquire?about?a?follow-up?and?getting?those?labs?done. Patient?would?also?like?to?consider?imaging?and?other?modalities?of?pain?control.??Referring?her?to?orthopedics?for?further?evaluation. Orders: Orders AMB Hemoglobin A1c Today E11.9 - Type 2 diabetes mellitus without complications Vitamin B12 and Folate Today E53.8 - Deficiency of other specified B group vitamins Vitamin D 25-OH Total Today E55.9 - Vitamin D deficiency, unspecified Comprehensive Roberts. Panel Fast Today Z00.00 - Encounter for general adult medical examination without abnormal findings Referrals Orthopedics Referral M54.9 - Dorsalgia, unspecified Medications: New glipizide ER 2.5 mg PO DAILY 30 days 30 tabs 2RF Changed From metformin 1,000 mg PO BID 90 days 180 tabs 3RF To metformin 1,000 mg PO DAILY From meclizine 25 mg PO DAILY 30 days PRN 30 tabs 0RF motion sickness To meclizine 25 mg PO DAILY 90 days PRN 90 tabs 1RF motion sickness Coding Level of Care Code Est Pt Level 4 (31788) Diagnoses Type 2 diabetes mellitus E11.9 Chronic vertigo R42 Chronic bilateral low back pain without sciatica M54.50; G89.29 Back pain laterality: bilateral Sciatica presence: without sciatica
[2023-09-16 13:16] VITALS: BP 106/60; PULSE 86; RESP 14; TEMP 36.6; O2SAT 97; BMI 25.9
== END 2023-09-16 14:17 | disposition home or self-care (01) ==
PROVIDERS: PCP Family Medicine; Visit Provider Family Medicine
DX: E11.9 Type 2 diabetes mellitus without complications (principal); R42 Dizziness and giddiness; M54.50 Low back pain, unspecified; G89.29 Other chronic pain
CPT/HCPCS: 83036; 99214

== ENCOUNTER 2023-12-20 14:40 | Outpatient (AMB) | payer OTHER, SELFPAY ==
--- NOTE | 2023-12-20 14:49 | MHC.PC.OV ---
Vital Signs 12/20/23 14:53 Height 5 ft 3 in Weight 146 lb 8 oz BMI 25.9 BP 120/60 Position Sitting Respiration 12 Pulse 74 Pulse Source Pulse Oximeter Temp 98 F Temp Source Tympanic Pulse Oximetry (%) 95 Oxygen Delivery Method Room Air Intake Visit Reasons: f/u diabetes Intake Note: follow up for diabetes Allergies codeine Allergy (Unknown, Verified 12/20/23 14:51) Unknown Medication List - Last Reconciled 12/20/23 by Yonny Tripathi MD back brace As directed blood sugar diagnostic (FreeStyle Lite Strips) Test Blood sugar 1-2 times a day, As directed, 90 days blood sugar diagnostic (OneTouch Ultra Test strips) Test blood sugar 1-2 times a day, as directed blood-glucose meter As directed 2 to 3 times per day blood-glucose meter (FreeStyle Lite Meter kit) Test blood sugar As directed, 999 days diclofenac sodium 1% 2 grams topical BID glipizide ER 2.5 mg PO DAILY 30 days lancets ([employer] Phamasc[employer] GroupTouch UltraSoft 2 Lancet) test blood sugar bid as directed lisinopril 2.5 mg PO DAILY 90 days meclizine 25 mg PO DAILY PRN 90 days metformin 1,000 mg PO DAILY nut.tx.gluc.intol,lac-free,soy (Glucerna oral liquid) 1 ea PO BID 30 days pravastatin 20 mg PO BEDTIME 90 days sertraline 75 mg (1.5 x 50 mg) PO DAILY 90 days sitagliptin phosphate (Januvia) 100 mg PO DAILY 90 days Tobacco use date assessed: 09/16/23 Dental Screening Dental Screen Date: 09/16/23 HPI f/u diabetes HPI Details 78 y/o female presents to f/u diabetes. Had added a small amount of glipizide last office visit. She is taking metformin, Januvia, and glipizide. Last A1c 09/16/23 8.1%. A1c today 12/20/23 is 7.0%. Morning blood sugar in the 130s. Ongoing complaints of vertigo. [facility] Medical History DDD (degenerative disc disease), lumbosacral Lumbar spondylitis Chronic lower back pain Bilateral hand pain Type 2 diabetes mellitus Anxiety Depression Surgical History No pertinent past surgical history Family History Sister Substance abuse Social History Housing: Apartment Alcohol intake: never Patient Tobacco Use Status: Former Tobacco user e-Cigarette/Vaping Use: Never Used service: No Current occupational status: retired Cognitive needs: No Hearing needs: No Vision needs: No (needs to have eyes checked.) Review of Systems Const Denies chills, Denies fatigue, Denies fever(s), Denies headache(s) and Denies weakness ENT Denies dizziness and Denies headache(s) Card Denies dyspnea Resp Denies cough, Denies dyspnea, Denies wheezing and Denies other (shortness of breath) Musc Denies numbness and Denies tingling Neuro Denies dizziness, Denies headache(s), Denies numbness, Denies tingling and Denies weakness Psych Denies anxiety and Denies depression Endo Denies fatigue Aller/Immun Denies wheezing Physical exam (Primary Care) Vital Signs: Last Vital Signs Temp 98 F 12/20/23 14:53 Pulse 74 12/20/23 14:53 Resp 12 12/20/23 14:53 BP 120/60 12/20/23 14:53 Pulse Ox 95 12/20/23 14:53 Oxygen Delivery Method Room Air 12/20/23 14:53 BMI result Body Mass Index 25.9 Tobacco/Smoking Status: Tobacco use Status Tobacco use date assessed 09/16/23 12/20/23 14:49 Patient Tobacco Use Status Former Tobacco user 12/20/23 14:49 e-Cigarette/Vaping Use Never Used 12/20/23 14:49 Const General: well developed; No acute distress Nutritional Appearance: well nourished Orientation/consciousness: patient oriented x3 HENMT Head: Yes normocephalic and Yes atraumatic Eyes General: appearance normal, both eyes and all related structures Pupils: Equal, round and reactive pupils present EOM: EOMs intact bilaterally Resp Effort & Inspection: normal respiratory effort Auscultation: clear to auscultation bilaterally Cardio Rate: regular rate Rhythm: regular rhythm Heart sounds: S1 normal heart sound present, S2 normal heart sound present, no gallops, no murmurs and no rubs Neuro General: patient oriented x3 and gait normal Cranial nerves: Yes Equal, round and reactive pupils present Psych Affect: normal affect Assessment and Plan Assessment & Plan (1) Type 2 diabetes mellitus: Code(s): E11.9 - Type 2 diabetes mellitus without complications Plan: A1c?now?7.0%. Essentially?at?goal?less?than?7.0% Patient?says?that?she?finds?it?difficult?to?maintain?current?eating?habits?however. Will?increase?glipizide?to?5?mg?daily?and?continue?sitagliptin?and?metformin?as?prescribed (2) Vertigo: Code(s): R42 - Dizziness and giddiness Plan: Ongoing?significant?vertigo Patient?says?that?ENT?specialist?was?unhelpful She?has?tried?physical?therapy?numerous?time Will?refer?her?to?Neurology (3) Seborrheic keratosis: Code(s): L82.1 - Other seborrheic keratosis Plan: She?can?return?for?a?subsequent?visit?for?cryotherapy Orders: Referrals Neurology Referral R26.89 - Other abnormalities of gait and mobility, R42 - Dizziness and giddiness Coding Level of Care Code Est Pt Level 4 (15697) Diagnoses Type 2 diabetes mellitus E11.9 Vertigo R42 Seborrheic keratosis L82.1
[2023-12-20 14:53] VITALS: BP 120/60; PULSE 74; RESP 12; TEMP 36.6; O2SAT 95; BMI 25.9
== END 2023-12-20 16:09 | disposition home or self-care (01) ==
PROVIDERS: PCP Family Medicine; Visit Provider Family Medicine
DX: E11.9 Type 2 diabetes mellitus without complications (principal); R42 Dizziness and giddiness; L82.1 Other seborrheic keratosis
CPT/HCPCS: 99214

== ENCOUNTER → 2024-01-11 16:35 | Outpatient (AMB) | payer OTHER, SELFPAY ==
--- NOTE | 2024-01-11 16:35 | MHC.PC.OV ---
Intake Visit Reasons: labs Intake Note: lab review Allergies codeine Allergy (Unknown, Verified 01/11/24 16:36) Unknown Tobacco use date assessed: 09/16/23 Dental Screening Dental Screen Date: 09/16/23 HPI labs HPI Details 78 y/o female presents to f/u labs via telemedicine. Labs drawn 01/02/24. Reviewed labs with pt. Elevated glucose of 130. Low vitamin D level at 23.1 ng/mL. Low vitamin B12 at 184 pg/mL. Had an abnormal cologuard test but pt declines colonoscopy. Has ongoing complaints of neuropathy. HPI Comments History of Present Illness Details Documentation assistance for Yonny Tripathi MD, was provided by Carmelo Carlisle, Sustainable Systems Analyst on 01/11/2024 at 4:58 PM EST. I, Dr. Tripathi, have read, observed, and verified documentation. [facility] Medical History DDD (degenerative disc disease), lumbosacral Lumbar spondylitis Chronic lower back pain Bilateral hand pain Type 2 diabetes mellitus Anxiety Depression Surgical History No pertinent past surgical history Family History Sister Substance abuse Social History Housing: Apartment Alcohol intake: never Patient Tobacco Use Status: Former Tobacco user e-Cigarette/Vaping Use: Never Used service: No Current occupational status: retired Cognitive needs: No Hearing needs: No Vision needs: No (needs to have eyes checked.) Review of Systems Const Denies chills, Denies fatigue, Denies fever(s), Denies headache(s) and Denies weakness ENT Denies dizziness and Denies headache(s) Card Denies dyspnea Resp Denies cough, Denies dyspnea, Denies wheezing and Denies other (shortness of breath) Musc Denies numbness and Denies tingling Neuro Denies dizziness, Denies headache(s), Denies numbness, Denies tingling and Denies weakness Psych Denies anxiety and Denies depression Endo Denies fatigue Aller/Immun Denies wheezing Physical exam (Primary Care) Tobacco/Smoking Status: Tobacco use Status Tobacco use date assessed 09/16/23 01/11/24 16:37 Patient Tobacco Use Status Former Tobacco user 01/11/24 16:37 e-Cigarette/Vaping Use Never Used 01/11/24 16:37 Telehealth Telehealth Telehealth Platform: Telephone Location of provider rendering services: practice address Location of patient: address on file Patient Identification confirmed using: Name, : Yes Telehealth method: voice only Patient verbally consented to treatment: Yes Patient verbally consented to billing insurance company: Yes Patient informed of any privacy concerns related to visit: Yes Minutes spent on Phone/Video with Pt.: 21 Assessment and Plan Assessment & Plan (1) Low vitamin D level: Code(s): R79.89 - Other specified abnormal findings of blood chemistry Plan: Start?cholecalciferol (2) Screening for osteoporosis: Code(s): Z13.820 - Encounter for screening for osteoporosis Plan: Had?ordered?bone?density?test?in?fall?of?2022?but?patient?says?she?has?been?contacted Will?reorder?this (3) Low vitamin B12 level: Code(s): R79.89 - Other specified abnormal findings of blood chemistry Plan: Low?B12?and?patient?has?significant?neuropathy B12?supplement?ordered (4) Screening for colon cancer: Code(s): Z12.11 - Encounter for screening for malignant neoplasm of colon Plan: Patient?had?positive?Cologuard?test. She?declined?colonoscopy?referral Patient?continues?to?decline?this?despite?discussing?risks?and?benefits. I?let?her?know?she?can?contact?me?if?she?changes?her?mind?and?I?will?make?a?referral?to?gastroenterology.??She?will?also?let?me?know?if?she?has?any?symptoms?such?as?abdominal?pain?or?blood?in?stools. (5) Type 2 diabetes mellitus: Code(s): E11.9 - Type 2 diabetes mellitus without complications Plan: Taking?medications?as?prescribed (6) Neuropathy: Code(s): G62.9 - Polyneuropathy, unspecified Plan: Neuropathy?bilateral?lower?extremities. Continue?to?keep?blood?sugars?well?controlled Take?B12?supplement?as?B12?level?is?low Will?follow Patient?has?ataxic?gait?and?lower?extremity?neuropathy.??I?am?sending?a?script?for?a?Rollator?walker?to?[facility]. Orders: Orders XR DEXA axial skeleton Today M81.0 - Age-related osteoporosis without current pathological fracture Coding Level of Care Code Tele Est Pt Level 3 (06432) Diagnoses Low vitamin D level R79.89 Screening for osteoporosis Z13.820 Low vitamin B12 level R79.89 Screening for colon cancer Z12.11 Type 2 diabetes mellitus E11.9 Neuropathy G62.9
== END ==
LOC: HO.HMGFM 16:35
PROVIDERS: PCP Family Medicine; Visit Provider Family Medicine
DX: R79.89 Other specified abnormal findings of blood chemistry (principal); Z13.820 Encounter for screening for osteoporosis; Z12.11 Encounter for screening for malignant neoplasm of colon; E11.42 Type 2 diabetes mellitus with diabetic polyneuropathy; G62.9 Polyneuropathy, unspecified
CPT/HCPCS: 99443

== ENCOUNTER → 2024-03-26 11:54 | Outpatient (BNVA) | payer OTHER, SELFPAY | PROVIDERS: PCP Family Medicine; Visit Provider Physician Assistant ==

== ENCOUNTER 2024-03-28 12:09 | Outpatient (AMB) | payer OTHER, SELFPAY ==
--- NOTE | 2024-03-28 12:29 | A.OFFPC_ITS ---
Vital Signs 03/28/24 12:33 Height 5 ft 3 in Weight 146 lb BMI 25.9 BP 125/59 L Blood Pressure Location Lt brachial Position Sitting Respiration 14 Pulse 84 Pulse Source Pulse Oximeter Temp 97.3 F Temp Source Temporal Artery Scan Pulse Oximetry (%) 95 Oxygen Delivery Method Room Air Intake Visit Reasons: Rsched from 01/29 - f/u seborrheic keratosis Intake Note: f/u for seborrheic keratosis Allergies codeine Allergy (Unknown, Verified 03/28/24 12:32) Unknown Tobacco use date assessed: 09/16/23 Dental Screening Dental Screen Date: 09/16/23 HPI Rsched from 01/29 - seborrheic keratosis HPI Details 78 y/o female presents today for cryothe rapy of a seborrheic keratosis lesion on her neck. A1c today 03/28/24 7.5%. Improved from prior. She is on Januvia and glipizide. Blood pressure today 125/59, 84p. Reports R knee pain. Reports fatigue/hypersomnia. Has not been evaluated for sleep apnea. [facility] Medical History DDD (degenerative disc disease), lumbosacral Lumbar spondylitis Chronic lower back pain Bilateral hand pain Type 2 diabetes mellitus Anxiety Depression Surgical History No pertinent past surgical history Family History Sister Substance abuse Social History Housing: Apartment Alcohol intake: never Patient Tobacco Use Status: Former Tobacco user e-Cigarette/Vaping Use: Never Used service: No Current occupational status: retired Cognitive needs: No Hearing needs: No Vision needs: No (needs to have eyes checked.) Questionnaire PHQ-9 Over the last 2 weeks, how often have you been bothered by any of the following problems? 1. Little interest or pleasure in doing things: nearly every day 2. Feeling down, depressed, or hopeless: nearly every day 3. Trouble falling or staying asleep, or sleeping too much: several days 4. Feeling tired or having little energy: nearly every day 5. Poor appetite or overeating: nearly every day 7. Trouble concentrating on things, such as reading the newspaper or watching television: not at all 8. Moving or speaking so slowly that other people could have noticed. Or the opposite - being so fidgety or restless that you have been moving around a lot more than usual: not at all 9. Thoughts that you would be better off or of hurting yourself in some way: several days Source: Developed by Drs. Ej Montiel, Adrianna Moore, Fabio Gastelum and colleagues, with an educational carmen from [employer]. Thrive Questionnaire I am a: Patient What is your living situation today?: I have a steady place to live Within the past 12 months, did the food you bought not last and you didn't have the money to get more?: Sometimes True Within the past 12 months, did you worry whether your food would run out before you got money to buy more?: Sometimes True Do you have trouble paying for medicines?: No Do you have trouble getting transportation to medical appointments?: No Do you have trouble paying your heating and electricity bill?: No Do you have trouble taking care of your child, family member or friend?: No Do you have trouble with day-to-day activities such as bathing, preparing meals, shopping, managing finances, etc.?: No Are you currently unemployed and looking for a job?: No Are you interested in more education?: No Please select the resources that you would like help with: None Currently or been in a relationship where the following occur: I choose not to answer THRIVE Score: 2 AUDIT C Alcohol Use Questionnaire (AUDIT-C) 1. How often do you have a drink containing alcohol?: Never Total Score: 0 HANDY-7 AMB Questionnaire HANDY-7 Feeling nervous, anxious, or on edge: 3 = Nearly every day Not being able to stop or control worryin = Nearly every day Worrying too much about different things: 3 = Nearly every day Trouble relaxin = Nearly every day Being so restless that it is hard to sit still: 1 = Several days Becoming easily annoyed or irritable: 1 = Several days Feeling afraid as if something awful might happen: 3 = Nearly every day Total HANDY-7 score (0-4 normal; 5-9 mild; 10-14 moderate; 15-21 severe): 17 Source: Developed by Drs. Ej Montiel, Adrianna Moore, Fabio Gastelum and colleagues, with an educational carmen from [employer]. Review of Systems Const Denies chills, Reports fatigue, Denies fever(s), Denies headache(s) and Denies weakness ENT Denies dizziness and Denies headache(s) Card Denies dyspnea Resp Denies cough, Denies dyspnea, Denies wheezing and Denies other (shortness of breath) Musc Details: R knee pain Denies numbness and Denies tingling Neuro Denies dizziness, Denies headache(s), Denies numbness, Denies tingling and Denies weakness Psych Denies anxiety and Denies depression Endo Reports fatigue Aller/Immun Denies wheezing Physical exam (Primary Care) Vital Signs: Last Vital Signs Temp 97.3 F 03/28/24 12:33 Pulse 84 03/28/24 12:33 Resp 14 03/28/24 12:33 BP 125/59 L 03/28/24 12:33 Pulse Ox 95 03/28/24 12:33 Oxygen Delivery Method Room Air 03/28/24 12:33 BMI result Body Mass Index 25.9 Tobacco/Smoking Status: Tobacco use Status Tobacco use date assessed 09/16/23 03/28/24 12:30 Patient Tobacco Use Status Former Tobacco user 03/28/24 12:30 e-Cigarette/Vaping Use Never Used 03/28/24 12:30 Currently or been in a relationship where the following occur: I choose not to answer Const General: well developed; No acute distress Nutritional Appearance: well nourished Orientation/consciousness: patient oriented x[facility]: Yes normocephalic and Yes atraumatic Eyes General: appearance normal, both eyes and all related structures Pupils: Equal, round and reactive pupils present EOM: EOMs intact bilaterally Resp Effort & Inspection: normal respiratory effort Neuro General: patient oriented x3 and gait normal Cranial nerves: Yes Equal, round and reactive pupils present Psych Affect: normal affect Coding Level of Care Code Est Pt Level 4 (53182) Diagnoses Hypertension I10 Seborrheic keratosis L82.1 Neoplasm of uncertain behavior of skin D48.5 Chronic bilateral low back pain without sciatica M54.50; G89.29 Back pain laterality: bilateral Sciatica presence: without sciatica Type 2 diabetes mellitus E11.9 Right knee pain M25.561 Fatigue R53.83 Hypersomnia G47.10 Assessment & Plan Assessment & Plan (1) Hypertension: Code(s): I10 - Essential (primary) hypertension Category: Medical Plan: Blood?pressure?is?controlled.??Goal?is?less?than?140/90 Continue?current?medication (2) Seborrheic keratosis: Code(s): L82.1 - Other seborrheic keratosis Category: Medical Plan: Seborrheic?keratosis?on?back Applied?3?rounds?of?freeze/thaw?cryotherapy Patient?tolerated?procedure?well Triple?antibiotic?and?Band-Aid?applied?and?she?can?remove?this?in?2?days Discussed?expectations Discussed?that?patient?may?need?additional?treatment (3) Neoplasm of uncertain behavior of skin: Code(s): D48.5 - Neoplasm of uncertain behavior of skin Category: Medical Plan: Patient? 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 Also?followed?by?rheumatology Continue?follow-up?with?ortho?and?Rheumatology (5) Type 2 diabetes mellitus: Code(s): E11.9 - Type 2 diabetes mellitus without complications Category: Medical Plan: A1c?is?improving?but?still?above?goal?of?less?than?7% Increased?glipizide?ER?5?mg?to?10?mg?daily?and?encouraged?her?to?use?this?in?the ?morning,?not?at?night Continue?Januvia?as?prescribed (6) Right knee pain: Code(s): M25.561 - Pain in right knee Category: Medical Plan: Pain?over?right?MCL Recommended?referral?to?Ortho?but?patient?declines?this?for?now She?can?use?low?doses?of?ibuprofen,?ice/heat?and?relative?rest If?not?improving?or?worsens,?will?refer (7) Fatigue: Code(s): R53.83 - Other fatigue Category: Medical Plan: Significant?fatigue?and?hypersomnia 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 However,?patient?has?significant?sleep?disturbances,?hypersomnia?and?un?restful? sleep Likely?sleep?apnea?and?I?have?referred?her?to?Sleep?Medicine (8) Hypersomnia: Code(s): G47.10 - Hypersomnia, unspecified Category: Medical Plan: As?above Orders: Orders Thyroid Stimulating Hormone Today E03.9 - Hypothyroidism, unspecified, R53.83 - Other fatigue Vitamin D 25-OH Total Today E55.9 - Vitamin D deficiency, unspecified, R53.83 - Other fatigue Comprehensive [place]. Panel Fast Today R53.83 - Other fatigue, Z00.00 - Encounter for general adult medical examination without abnormal findings Complete Blood Count Auto Diff Today R53.83 - Other fatigue, Z00.00 - Encounter for general adult medical examination without abnormal findings Free T4 (Free Thyroxine) Today E03.9 - Hypothyroidism, unspecified, R53.83 - Other fatigue Triiodothyronine T3 Total Today E03.9 - Hypothyroidism, unspecified, R53.83 - Other fatigue Vitamin B12 and Folate Today E53.8 - Deficiency of other specified B group vitamins, R53.83 - Other fatigue Referrals Sleep Medicine Referral G47.10 - Hypersomnia, unspecified Dermatology Referral D48.5 - Neoplasm of uncertain behavior of skin Medications: New ibuprofen 400 mg PO BID 30 days PRN 60 tabs 0RF pain Changed From glipizide ER 5 mg (2 x 2.5 mg) PO DAILY 30 days 60 tabs 2RF To glipizide ER 7.5 mg (1.5 x 5 mg) PO DAILY 30 days 45 tabs 2RF From glipizide ER 7.5 mg (1.5 x 5 mg) PO DAILY 30 days 45 tabs 2RF To glipizide ER 10 mg PO QAM 30 days 30 tabs 2RF
[2024-03-28 12:33] VITALS: BP 125/59; PULSE 84; RESP 14; TEMP 36.3; O2SAT 95; BMI 25.9
== END 2024-03-28 13:47 | disposition home or self-care (01) ==
PROVIDERS: PCP Family Medicine; Visit Provider Family Medicine
DX: I10 Essential (primary) hypertension (principal); E11.9 Type 2 diabetes mellitus without complications; L82.1 Other seborrheic keratosis; D48.5 Neoplasm of uncertain behavior of skin; M54.50 Low back pain, unspecified; G89.29 Other chronic pain; M25.561 Pain in right knee; R53.83 Other fatigue; G47.10 Hypersomnia, unspecified

== ENCOUNTER → 2024-03-28 12:09 | Outpatient (BNVA) | payer OTHER, SELFPAY | PROVIDERS: PCP Family Medicine; Visit Provider Family Medicine ==

== ENCOUNTER 2024-03-28 13:39 | Outpatient (REF) | payer OTHER, SELFPAY ==
[2024-03-28 17:45] LABS: MANUAL DIFF FLAG NO
[2024-03-28 18:07] LABS: Basophils Absolute Auto 0.1 X10*3/uL (0.0-0.2); Basophils Percent Auto 0.9 % (0-2); Eosinophils Absolute Auto 0.3 X10*3/uL (0.0-0.4); Eosinophils Percent Auto 2.8 % (0-4); Hematocrit 40.3 % (37.0-47.0); Hemoglobin 13.1 g/dl (12.0-16.0); Imm Gran Abs Auto 0.06 X10*3/uL (0.00-0.03); Imm Gran Pct Auto 0.7 % (0.0-0.4); Lymphocytes Percent Auto 22.6 % (20-40); Mean Corpuscular HGB Conc 32.5 g/dl (31.0-35.0); Mean Corpuscular Hemoglobin 29.3 pg (27.0-33.0); Mean Corpuscular Volume 90.2 fL (80.0-98.0); Monocytes Absolute Auto 0.6 X10*3/uL (0.1-1.2); Monocytes Percent Auto 6.2 % (2-11); Neutrophils Percent Auto 66.8 % (45-73); Platelet Count 287 X10*3/uL (160-400); Red Blood Count 4.47 X10*6/uL (4.20-5.50); Red Cell Distribution Width 12.8 % (11.0-16.0)
[2024-03-28 18:08] LABS: Alanine Aminotransferase 19 U/L (0-31); Albumin Level 4.3 g/dL (3.5-5.0); Alkaline Phosphatase 66 U/L (39-117); Anion Gap 14 (12-20); Aspartate Amino Transferase 23 U/L (5-31); Bilirubin Total 0.4 mg/dL (0.0-1.0); Blood Urea Nitrogen 10 mg/dL (9-16); Carbon Dioxide 26 mmol/L (22-29); Chloride 100 mmol/L (96-108); Estimated Glomerular Filt Rate > 60; Glucose Fasting 193 mg/dL (60-99); Sodium 136 mmol/L (135-145); Total Protein 7.4 g/dL (6.5-8.0)
[2024-03-28 18:27] LABS: Free T4 (Free Thyroxine) 0.97 ng/dL (0.71-1.85); Thyroid Stimulating Hormone 1.26 uIU/mL (0.32-4.0); Vitamin D 25-OH Total 41.9 ng/mL (>30)
[2024-03-28 18:34] LABS: Folate 12.1 ng/mL (> or = 4.0); Vitamin B12 602 pg/mL (200-900)
[2024-03-30 00:43] LABS: Triiodothyronine T3 Total 95 ng/dL (76-181)
== END 2024-03-28 13:40 | disposition home or self-care (01) ==
LOC: HO.WFDLDS 13:39
PROVIDERS: Visit Provider Family Medicine
DX: L82.1 Other seborrheic keratosis (principal); G47.10 Hypersomnia, unspecified; M25.561 Pain in right knee; I10 Essential (primary) hypertension; D48.5 Neoplasm of uncertain behavior of skin; G89.29 Other chronic pain; M54.50 Low back pain, unspecified; E11.9 Type 2 diabetes mellitus without complications; R53.83 Other fatigue; E53.8 Deficiency of other specified B group vitamins; E03.9 Hypothyroidism, unspecified; Z00.00 Encounter for general adult medical examination without abnormal findings
CPT/HCPCS: 36415; 80053; 82306; 82607; 82746; 84439; 84443; 84480; 85025

== ENCOUNTER 2024-05-15 11:44 | Outpatient (AMB) | payer OTHER, SELFPAY ==
--- OUTSIDE RECORDS SUMMARY | 2024-05-15 11:46 | XMS_ITS | Data Portability ---
Author Organization [place] [facility], Allergy Address [address] [address] Care Team Providers Care Needle Maker Name Role Phone JOHNSON PATRICIO Primary Care Provider Assessment Encounter Date Assessment Date Assessment LastModified by Organization Details LastModified Time 12/13/2023 12/13/2023 Patient's chroni c unsteadiness on her feet is likely to be multifactorial, including peripheral neuropathy, chronic back pain due to lumbar disc disease with apparent lower extremity lower radiculopathy. We discussed that these factors affect her lower extremity proprioceptive feedback and coordination, leading to unsteadiness on her feet. This is a very difficult problem that may be remedied at least in part with her upcoming lumbar spine injections. This may respond in part to vestibular rehabilitation therapy with lower extremity strengthening and balance exercises. Another factor here appears to be left BPPV. Zena-Hallpike was positive for vertigo and rotary nystagmus with the head to the left. We discussed that the patient? s pattern of symptoms and physical exam findings are most consistent with benign paroxysmal positional vertigo (BPPV). The pathophysiology of BPPV was discussed in detail. Patient was provided with a referral to [facility] for Rustam maneuvers and vestibular therapy.??We discussed the fact that treatment of BPPV can require anywhere from 1 to 6 treatments for successful results, and has approximately 95% success rate in eliminating symptoms. BPPV can recur and if the classic positionally induced symptoms do recur, patient can call for further referrals. I specifically recommended she see Rhiannon Carr at [facility] who is skilled at dealing with recalcitrant BPPV. [email or web address] Not available 12/13/2023 14:43:35 Plan of Treatment Reminders Order Date Submit Date Provider Last Modified By Organization Details Last Modified Time Details Appointments None record ed. Lab None record ed. Referral None record ed. Procedures None record ed. Surgeries None record ed. Imaging None record ed. Medication Orders None record ed. Patient TargetsNo targets recorded. Patient InstructionsNo instructions recorded. Reason for Referral None Reported. Results Created Date Observation Date Name Description Value Unit Range Abnormal Flag Note LastModifiedBy Organization Detail LastModifiedTime 12/13/19 24 10/22/2021 MRI, brain , w/o contr ast No observ ation record ed. [email or web address] Not Available 11/15 15:45:41 12/14/19 audio gram No observ ation record ed. [email or web address] Not Available 2023 15:51:05 01/04/20 24 11/10/2020 imagi ng/di agnos tic resul t No observ ation record ed. [email or web address] Not Available 19:17:17 Result Notes None recorded. Problems Name Problem SNOMED Code Status Onset Date Resolution Date Notes Provider Name and Address Organization Details Recorded Time Peripheral neuropathy due to type 2 diabetes mellitus 1936589758777 Active 2023 ROD DIALLO MD [address] [place] [address], [place], [phone], [place] [facility] 19:37:02 Type 2 diabetes mellitus 26068131 Active 2023 ROD DIALLO MD [address] [place] [address], [place], [address], [place] [facility] 19:37:51 Unsteady when walking 73311797 Active 2023 ROD DIALLO MD [address] [place] [address], [place], [address], [place] [facility] 19:38:05 Muscle weakness of limb 345665665 Active 2023 ROD DIALLO MD [address] [place] [address], [place], [address], [place] [facility] 19:39:46 Musculoskel etal finding 761236152 Active 2023 ROD DIALLO MD [address] [address], [place], [phone], [place] [facility] 19:40:14 Sensorineur al hearing loss of bilateral ears 665314724 Active 2023 MAYTE LR [address] [address], [place], [phone], [facility] 13:29:32 Benign paroxysmal positional vertigo 518450422 Active 2023 ROD DIALLO MD [address] [address], [place], [address], [facility] - [facility] 14:28:31 Problem Notes None recorded. Procedures Surgical History Date Name Laterality Status Provider Name and Address Organization Details Recorded Time 12/13/19 24 Comp Audio with Tymps (08901 & 47831) completed MAYTE LR [address] [place] [address], [phone], [facility] - [facility] 12/13/2023 13:25:53 cholecystectomy completed Jillian Calderón [place] [facility] 12/13/2023 13:18:28 Imaging Results Imaging Date Name Status LastModified by Organiz ation Details LastModified Time 10/22/2021 MRI, brain, w/o contrast completed [email or web address] Information not available 12/13/2023 15:45:41 12/14/2023 audiogram completed [email or web address] Information no t available 12/14/2023 15:51:05 11/10/2020 imaging/diagno stic result completed [email or web address] Information not available 01/04/2024 19:17:17 Procedure Notes None recorded. Medical Equipment None Reported. Allergies Allergen ID Allergen Name Allergen Category Reaction Reaction Severity Criticality Documentation Date Start Date Code Code System Note Provider Name and Address Organization Details Recorded Time [id number] codeine medicatio n Not available Not available Not available 12/13/2023 2670 RxNorm Jillian Calderón [facility] 13:17:14 Medications Name Sig Start Date Stop Date Status Note LastModified by Organization Details LastModified Time glucerjosh carbsteady liqd 12/12 completed Not Available Not Available Not Available azithromyci n 250 mg tablet 12/12 completed Not Available Not Available Not Available amoxicillin 500 mg tablet TAKE 2 TABLETS BY MOUTH EVERY 8 HOURS FOR 10 DAYS 12/12 completed Not Available Not Available Not Available OneTouch Ultra Test strips USE TO TEST BLOOD SUGAR 1-2 TIMES EVERY DAY DIRECTED 12/12 completed Not Available Not Available Not Available meclizine 25 mg tablet TAKE 1 TABLET BY MOUTH DAILY NEEDED FOR MOTION SICKNESS active Not Available Not Available No t Available glipizide ER 2.5 mg tablet, extended release 24 hr TAKE 1 TABLET BY MOUTH DAILY active Not Available Not Available No t Available metformin 1,000 mg tablet TAKE 1 TABLET BY MOUTH TWICE DAILY active Not Available Not Available No t Available lidocaine 5 % topical patch APPLY 2 PATCHES TOPICALLY TO THE SKIN DAILY. LEAVE ON MOST PAINFUL AREA OF LOWER BACK FOR UP TO 12 HOURS 12/12 completed Not Available Not Available Not Available halobetasol propionate 0.05 % topical cream APPLY TOPICALLY TO RASH ON HANDS TWICE DAILY NEEDED 12/12 completed Not Available Not Available Not Available pravastatin 20 mg tablet TAKE 1 TABLET BY MOUTH AT BEDTIME active Not Available Not Available No t Available albuterol sulfate HFA 90 mcg/actuati on aerosol inhaler INHALE 2 PUFFS BY MOUTH EVERY 4 HOURS NEEDED FOR WHEEZING / SHORTNESS OF BREATH active Not Available Not Available No t Available sertraline 50 mg tablet TAKE 1 AND 1/2 TABLETS BY MOUTH DAILY 12/12 completed Not Available Not Available Not Available lisinopril 2.5 mg tablet TAKE 1 TABLET BY MOUTH DAILY active Not Available Not Available No t Available Januvia 100 mg tablet TAKE 1 TABLET BY MOUTH DAILY active Not Available Not Available No t Available Ultra Thin Lancets 30 gauge USE TO TEST BLOOD SUGAR TWICE DAILY DIRECTED 12/12 completed Not Available Not Available Not Available Glucerna Therapeutic Nutrition oral liquid DRINK 1 CAN TWICE DAILY 12/12 completed Not Available Not Available Not Available OneTouch Ultra2 Meter USE 2-3 TIMES EVERY DAY 12/12 completed Not Available Not Available Not Available Vitals Date Recorded Body height Body weight Provider Name and Address Organization Details Last Updated DateTime 12/13/2023 160.02 cm 02635.89 g Jillian Calderón [place] [facility] 12/13/2023 13:45:28 Social History None recorded. Functional Status None recorded. Mental Status None recorded. Family History Nothing Reported. Medical History Condition Response Diabetes Y Arthritis Y Anxiety Y High Cholesterol Y Migraines Y Hypertension Y Gynecological HistoryNo gynecological history recorded. Obstetrics History GPAL:G 0 P 0 0 0 0 Past Encounters Encounter ID Performer Location Encounter Start Date Encounter Closed Date Diagnosis/Indication Diagnosis SNOMED-CT Code Diagnosis ICD10 Code 40321 ROD DIALLO MD [facility] [address] [address] 12/13/2023 12:47:56 12/13/2023 14:41:23 Peripheral neuropathy due to type 2 diabetes mellitus 4865328419 107 E11.42 Type 2 viji betes mellitus 39445513 E11.49 Unsteady when walking 22 000068 R26.89 Musculoske letal finding 187727455 R29.898 Sensorineu ral hearing loss of bilateral ears 718971311 H90.3 Benign par oxysmal positional vertigo 235338391 H81.12 Health Concerns Section Related Observation LastModified by Organization Detai ls LastModified Time None Recorded Concern Status LastModified by Organization Details LastModified Time None Recorded Advance Directives Directive None Recorded Payers Encounter Date Sequence Insurance Name Policy Number Policy Lauren Covered Member ID Lauren Member ID Guarantor Name 12/13/2023 1 [facility] - DUAL ELIGIBLE - [facility] - [facility]IOR [facility] (MEDICARE REPLACEMENT/ ADVANTAGE - HMO) Joi Velasco [id number] Joi Velasco Notes Date Note Type Note Provider Name and Address Organization Details Recorded Time 12/13/2023 text/html 78-year-old fema le with history of diabetes and diabetic neuropathy, hypertension referred for evaluation of balance disturbance. Patient has had recent falls of unclear etiology. Patient has lower back pain right leg weakness and numbness and was being referred to neurology for further evaluation of this issue. Patient reports having had EMG which showed nerve damage affecting the right lower leg all the way up into the lower back. She does have lumbar disc disease and may be getting some shots in her lumbar spine coming up in the next couple of weeks. Patient reports having had vestibular therapy in the past and was recommended she see ENT.Patient reports that she feels off balance in general, needing to touch things when she is walking so that she does not fall. She usually uses a walker at home. She has occasional episodes where she will suddenly feel like she is being thrown to the left side but does not really feel a sensation of true vertigo. Occasionally when she rolls over in bed, she will have brief sensation of motion, but this is not as common. Overall, she does not have the sensation of dizziness per se, but more of a sensation of feeling unsteady on her feet. ROD DIALLO MD [address] [place] [address], [phone], [facility] - [facility] 12/13/2023 14:44:35 OBGyn Episode No OBEpisode recorded.
--- NOTE | 2024-05-15 11:55 | A.OFFPC_ITS ---
Vital Signs 05/15/24 11:56 Height 5 ft 3 in Weight 148 lb 2 oz BMI 26.2 BP 120/60 Blood Pressure Location Lt brachial Position Sitting Respiration 16 Pulse 79 Pulse Source Pulse Oximeter Temp 98.1 F Temp Source Oral Pulse Oximetry (%) 98 Oxygen Delivery Method Room Air Intake Visit Reasons: f/u fatigue Intake Note: f/u for fatigue Allergies codeine Allergy (Unknown, Verified 05/15/24 11:55) Unknown Medication List - Last Reconciled 05/15/24 by Yonny Tripathi MD back brace As directed blood sugar diagnostic (FreeStyle Lite Strips) Test Blood sugar 1-2 times a day, As directed, 90 days blood sugar diagnostic (OneTouch Ultra Test strips) Test blood sugar 1-2 times a day, as directed blood-glucose meter As directed 2 to 3 times per day blood-glucose meter (FreeStyle Lite Meter kit) Test blood sugar As directed, 999 days cholecalciferol (vitamin D3) 50 mcg PO DAILY 30 days diclofenac sodium 1% 2 grams topical BID glipizide ER 10 mg PO QAM 30 days ibuprofen 400 mg PO BID PRN 30 days lancets (Quick TVTouch UltraSoft 2 Lancet) test blood sugar bid as directed lisinopril 2.5 mg PO DAILY 90 days meclizine 25 mg PO DAILY PRN 90 days mecobalamin (vitamin B12) 1,000 mcg sublingual DAILY 30 days metformin 1,000 mg PO DAILY 90 days nut.tx.gluc.intol,lac-free,soy (Glucerna oral liquid) 1 ea PO BID 30 days pravastatin 20 mg PO BEDTIME 90 days sertraline 75 mg (1.5 x 50 mg) PO DAILY 90 days sitagliptin phosphate (Januvia) 100 mg PO DAILY 90 days walker (Ultra-Light Rollator misc) Rollator Walker with seat and brakes (purple). Daily As directed. 999 days. Tobacco use date assessed: 09/16/23 Dental Screening Dental Screen Date: 09/16/23 HPI f/u fatigue HPI Details 78 y/o female presents today to f/u maddie engle. Had complaints of hypersomnia and unrestful sleep. Checking labs. Labs drawn 03/28/24. Vitamin B12 602, Vitamin D 41.9. Pain over R MCL. She reports insurance had declined MRI for this. Last A1c 7.5%. Had increased her glipizide and states she is tolerating her medication regimen. HPI Comments History of Present Illness Details Documentation assistance for Yonny Tripathi MD, was provided by Carmelo Carlisle, Cardiovascular Surgeon on 05/15/2024 at 12:17 PM EST. I, Dr. Tripathi, have read, observed, and verified documentation. [facility] Medical History DDD (degenerative disc disease), lumbosacral Lumbar spondylitis Chronic lower back pain Bilateral hand pain Type 2 diabetes mellitus Anxiety Depression Surgical History No pertinent past surgical history Family History Sister Substance abuse Social History Housing: Apartment Alcohol intake: never Patient Tobacco Use Status: Former Tobacco user e-Cigarette/Vaping Use: Never Used service: No Current occupational status: retired Cognitive needs: No Hearing needs: No Vision needs: No (needs to have eyes checked.) Questionnaire Thrive Questionnaire Date Thrive assessed: 03/28/24 I am a: Patient What is your living situation today?: I have a steady place to live Within the past 12 months, did the food you bought not last and you didn't have the money to get more?: Sometimes True Within the past 12 months, did you worry whether your food would run out before you got money to buy more?: Sometimes True Do you have trouble paying for medicines?: No Do you have trouble getting transportation to medical appointments?: No Do you have trouble paying your heating and electricity bill?: No Do you have trouble taking care of your child, family member or friend?: No Do you have trouble with day-to-day activities such as bathing, preparing meals, shopping, managing finances, etc.?: No Are you currently unemployed and looking for a job?: No Are you interested in more education?: No Please select the resources that you would like help with: None Currently or been in a relationship where the following occur: I choose not to answer THRIVE Score: 2 Review of Systems Const Reports fatigue, Denies headache(s) and Denies weakness ENT Denies dizziness and Denies headache(s) Card Denies dyspnea Resp Denies cough, Denies dyspnea, Denies wheezing and Denies other (shortness of breath) Musc Denies numbness and Denies tingling Neuro Denies dizziness, Denies headache(s), Denies numbness, Denies tingling and Denies weakness Psych Denies anxiety and Denies depression Endo Reports fatigue Aller/Immun Denies wheezing Physical exam (Primary Care) Vital Signs: Last Vital Signs Temp 98.1 F 05/15/24 11:56 Pulse 79 05/15/24 11:56 Resp 16 05/15/24 11:56 BP 120/60 05/15/24 11:56 Pulse Ox 98 05/15/24 11:56 Oxygen Delivery Method Room Air 05/15/24 11:56 BMI result Body Mass Index 26.2 Tobacco/Smoking Status: Tobacco use Status Tobacco use date assessed 09/16/23 05/15/24 12:00 Patient Tobacco Use Status Former Tobacco user 05/15/24 12:00 e-Cigarette/Vaping Use Never Used 05/15/24 12:00 Thrive Assessment: Date of Thrive Assessment Date Thrive assessed 03/28/24 05/15/24 12:00 Currently or been in a relationship where the following occur: I choose not to answer Const General: well developed; No acute distress Nutritional Appearance: well nourished Orientation/consciousness: patient oriented x3 HENMT Head: Yes normocephalic and Yes atraumatic Eyes General: appearance normal, both eyes and all related structures Pupils: Equal, round and reactive pupils present EOM: EOMs intact bilaterally Resp Effort & Inspection: normal respiratory effort Auscultation: clear to auscultation bilaterally Cardio Rate: regular rate Rhythm: regular rhythm Heart sounds: S1 normal heart sound present, S2 normal heart sound present, no gallops, no murmurs and no rubs Neuro General: patient oriented x3 and gait normal Cranial nerves: Yes Equal, round and reactive pupils present Psych Affect: normal affect Coding Level of Care Code Est Pt Level 3 (71272) Diagnoses Fatigue R53.83 Hypersomnia G47.10 Neoplasm of uncertain behavior of skin D48.5 Scalp pruritus L29.9 Type 2 diabetes mellitus E11.9 Assessment & Plan Assessment & Plan (1) Fatigue: Code(s): R53.83 - Other fatigue Category: Medical Plan: Ongoing?fatigue Lab?work?is?unremarkable She?had?an?appointment?with?sleep?medi cine?through?[facility]?but?she?seems?to?have?cancel?this?and?has?not?rescheduled?ye t. 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 I?increased?her?glipizide?at?that?visit.??She?is?tolerating?current?medication?r egimen?as?prescribed. Hopefully?will?be?at?goal?of?less?than?7.0%?at?next?visit Orders: Referrals Dermatology Referral D48.5 - Neoplasm of uncertain behavior of skin, L29.9 - Pruritus, unspecified Medications: Changed From cholecalciferol (vitamin D3) 50 mcg PO DAILY 30 days 30 caps 3RF D48.5 - Neoplasm of uncertain behavior of skin To cholecalciferol (vitamin D3) 50 mcg PO DAILY 90 days 90 caps 3RF D48.5 - Neoplasm of uncertain behavior of skin
[2024-05-15 11:56] VITALS: BP 120/60; PULSE 79; RESP 16; TEMP 36.7; O2SAT 98; BMI 26.2
== END 2024-05-15 12:27 | disposition home or self-care (01) ==
PROVIDERS: PCP Family Medicine; Visit Provider Family Medicine
DX: R53.83 Other fatigue (principal); E11.9 Type 2 diabetes mellitus without complications; G47.10 Hypersomnia, unspecified; D48.5 Neoplasm of uncertain behavior of skin; L29.9 Pruritus, unspecified

== ENCOUNTER 2024-08-28 15:44 | Outpatient (AMB) | payer OTHER, SELFPAY ==
--- NOTE | 2024-08-28 16:10 | A.OFFPC_ITS ---
Vital Signs 08/28/24 16:15 Height 5 ft 3 in Weight 151 lb BMI 26.7 BP 120/60 Blood Pressure Location Lt brachial Position Sitting Respiration 16 Pulse 64 Pulse Source Pulse Oximeter Temp 98.1 F Temp Source Oral Pulse Oximetry (%) 95 Oxygen Delivery Method Room Air Intake Visit Reasons: f/u diabetes, chronic conditions Chip Tuner Required: No Is last menstrual period known: No Post menopausal: No Patient : No Allergies codeine Allergy (Unknown, Verified 08/28/24 16:10) Unknown Medication List - Last Reconciled 08/28/24 by Yonny Tripathi MD back brace As directed blood sugar diagnostic (FreeStyle Lite Strips) Test Blood sugar 1-2 times a day, As directed, 90 days blood sugar diagnostic (OneTouch Ultra Test strips) Test blood sugar 1-2 times a day, as directed blood-glucose meter As directed 2 to 3 times per day blood-glucose meter (FreeStyle Lite Meter kit) Test blood sugar As directed, 999 days cholecalciferol (vitamin D3) 50 mcg PO DAILY 90 days diclofenac sodium 1% 2 grams topical BID glipizide ER 10 mg PO QAM 30 days lancets ([employer] Machinery[employer] UltraSoft 2 Lancet) test blood sugar bid as directed lisinopril 2.5 mg PO DAILY 90 days meclizine 25 mg PO DAILY PRN 90 days mecobalamin (vitamin B12) 1,000 mcg sublingual DAILY 30 days metformin 1,000 mg PO DAILY 90 days nut.tx.gluc.intol,lac-free,soy (Glucerna oral liquid) 1 ea PO BID 30 days pravastatin 20 mg PO BEDTIME 90 days sertraline 75 mg (1.5 x 50 mg) PO DAILY 90 days sitagliptin phosphate (Januvia) 100 mg PO DAILY 90 days walker (Ultra-Light Rollator misc) Rollator Walker with seat and brakes (purple). Daily As directed. 999 days. Tobacco use date assessed: 08/28/24 Dental Screening Dental Screen Date: 09/16/23 HPI f/u diabetes, chronic conditions HPI Details 79 y/o female presents to f/u diabetes, chronic conditions. Prior A1c 7.5%. A1c today 08/28/24 is 6.4%. She is on metformin 1000mg, Januvia. Had been following up with orthopedics for back pain, leg pain. HPI Comments History of Present Illness Details Documentation assistance for Yonny Tripathi MD, was provided by Carmelo Carlisle,? Extra Gang Supervisor on 08/28/2024 at 4:40 PM EST. I, Dr. Tripathi, have read, observed, and verified documentation. ? PFSH Medical History DDD (degenerative disc disease), lumbosacral Lumbar spondylitis Chronic lower back pain Bilateral hand pain Type 2 diabetes mellitus Anxiety Depression Surgical History No pertinent past surgical history Family History Sister Substance abuse Social History Housing: Apartment Alcohol intake: never Patient Tobacco Use Status: Former Tobacco user e-Cigarette/Vaping Use: Never Used service: No Current occupational status: retired Cognitive needs: No Hearing needs: No Vision needs: No (needs to have eyes checked.) Questionnaire Thrive Questionnaire Date Thrive assessed: 03/28/24 Review of Systems Const Denies chills, Denies fatigue, Denies fever(s), Denies headache(s) and Denies weakness ENT Denies dizziness and Denies headache(s) Card Denies dyspnea Resp Denies cough, Denies dyspnea, Denies wheezing and Denies other (shortness of breath) Musc Denies numbness and Denies tingling Neuro Denies dizziness, Denies headache(s), Denies numbness, Denies tingling and Denies weakness Psych Denies anxiety and Denies depression Endo Denies fatigue Aller/Immun Denies wheezing Physical exam (Primary Care) Vital Signs: Last Vital Signs Temp 98.1 F 08/28/24 16:15 Pulse 64 08/28/24 16:15 Resp 16 08/28/24 16:15 BP 120/60 08/28/24 16:15 Pulse Ox 95 08/28/24 16:15 Oxygen Delivery Method Room Air 08/28/24 16:15 BMI result Body Mass Index 26.7 Tobacco/Smoking Status: Tobacco use Status Tobacco use date assessed 08/28/24 08/28/24 16:14 Patient Tobacco Use Status Former Tobacco user 08/28/24 16:14 e-Cigarette/Vaping Use Never Used 08/28/24 16:14 Thrive Assessment: Date of Thrive Assessment Date Thrive assessed 03/28/24 08/28/24 16:14 Const General: well developed; No acute distress Nutritional Appearance: well nourished Orientation/consciousness: patient oriented x3 HENMT Head: Yes normocephalic and Yes atraumatic Eyes General: appearance normal, both eyes and all related structures Pupils: Equal, round and reactive pupils present EOM: EOMs intact bilaterally Resp Effort & Inspection: normal respiratory effort Auscultation: clear to auscultation bilaterally Cardio Rate: regular rate Rhythm: regular rhythm Heart sounds: S1 normal heart sound present, S2 normal heart sound present, no gallops, no murmurs and no rubs Neuro General: patient oriented x3 and gait normal Cranial nerves: Yes Equal, round and reactive pupils present Psych Affect: normal affect Results AMB Hemoglobin A1c AMB Hemoglobin A1c 6.4 % Last Edit by ADI West on 08/28/24 17:25 Results Reviewed Results Reviewed: Laboratory Last Values Hgb A1c (Clinic) 6.4 % (4.0-6.0) H 08/28/24 17:25 Coding Level of Care Code Est Pt Level 4 (96545) Diagnoses Type 2 diabetes mellitus E11.9 DDD (degenerative disc disease), lumbosacral M51.37 Scalp pruritus L29.9 Hypertension I10 Neoplasm of uncertain behavior of skin D48.5 Assessment & Plan Assessment & Plan (1) Type 2 diabetes mellitus: Code(s): E11.9 - Type 2 diabetes mellitus without complications Category: Medical Plan: A1c?now?6.4%.??Good?control.??Goal?is?less?than?7.0% Continue?current?medications Continue?diabetic?diet (2) DDD (degenerative disc disease), lumbosacral: Code(s): M51.37 - Other intervertebral disc degeneration, lumbosacral region Category: Medical Plan: Followed?by?Ortho They?recommended?injection?therapy?but?she?declined?this. The?switched?ibuprofen?to?sulindac?but?she?says?this?is?not?any?better. Had?a?long?discussio n?with?her?regarding?injection?therapy.??She?has?had?good?results?with?injection s?therapy?in?her?shoulders?in?the?past. Encouraged?her?to?discuss?more?thoroughly?with?ortho. (3) Scalp pruritus: Code(s): L29.9 - Pruritus, unspecified Category: Medical Plan: Followed?by?dermatology. Still?has?symptoms.??Follow-up?with?Dermatology?and?next?appointment. (4) Hypertension: Code(s): I10 - Essential (primary) hypertension Category: Medical Plan: Blood?pressure?is?controlled.??Goal?is?less?than?140/90 Continue?current?medication (5) Neoplasm of uncertain behavior of skin: Code(s): D48.5 - Neoplasm of uncertain behavior of skin Category: Medical Plan: As?above,?patient?was?referred?to?dermatology. She?says?intensive care unit registered nurse?has?looked?at?her?scal p?but?has?put?all?evaluating?this?lesion?until?her?next?visit.??She?has?an?appoi ntment. Encouraged?her?to?ensure?she?follows?up. Orders: Orders AMB Hemoglobin A1c Today E11.9 - Type 2 diabetes mellitus without complications
[2024-08-28 16:15] VITALS: BP 120/60; PULSE 64; RESP 16; TEMP 36.7; O2SAT 95; BMI 26.7
--- OUTSIDE RECORDS SUMMARY | 2024-08-28 18:46 | XMS_ITS | Data Portability ---
Author Organization [place] - [facility], Allergy Address [address] [address] Care Team Providers Care Endodontic Assistant Name Role Phone JOHNSON PATRICIO Primary Care [...] factor here appears to be left BPPV. [place] was positive for vertigo and rotary nystagmus with the head to the left. We discussed that the patient? s pattern of symptoms and physical exam findings are most consistent with benign paroxysmal positional vertigo (BPPV). The pathophysiology of BPPV was discussed in detail. Patient was provided with a referral to [facility] for Rustam maneuvers and vestibular therapy.? ? ?We discussed the fact that treatment of BPPV can require anywhere from 1 to 6 treatments for successful results, and has approximately 95% success rate in eliminating symptoms. BPPV can recur and if the classic positionally induced symptoms do recur, patient can call for further referrals. I specifically recommended she see Rhiannon Carr at [facility] who is skilled at dealing with recalcitrant BPPV. [email or web address] Not available 12/13/2023 14:43:35 Plan of Treatment [...] neuropathy due to type 2 diabetes mellitus [id number] Active 2023 ROD DIALLO MD [address] [place] [address], [facility] [place], [address], [place] - [facility] 4 19:37:02 Type 2 diabetes mellitus 57262880 Active 2023 ROD DIALLO MD [address] [place] [address], [facility] [place], [address], [place] - [facility] [place] 19:37:51 Unsteady when walking 68942976 Active 2023 ROD DIALLO MD [address] [place] [address], [facility] [place], [address], [place] - [facility] [place] 4 19:38:05 Muscle weakness of limb 927884011 Active 2023 ROD DIALLO MD [address] [place] [address], [facility] [place], [address], [place] - [facility] [place] 19:39:46 Musculoskel etal finding 137494726 Active 2023 ROD DIALLO MD [address] [address], [place], [address], [place] - [facility] 19:40:14 Sensorineur al hearing loss of bilateral ears 706439786 Active 2023 MAYTE LR 100 [facility],[address] [address], [place], [address], [facility] - [facility] 13:29:32 Benign paroxysmal positional vertigo 417982970 Active 2023 ROD DIALLO MD [address] [address], [place], [address], [facility] - [facility] 14:28:31 Problem Notes None recorded. Procedures Surgical History Date Name Laterality Status Provider Name and Address Organization Details Recorded Time 12/13/19 24 Comp Audio with Tymps (47822 & 98081) completed MAYTE LR [address] [place] [address], [phone], [facility] - [facility] 12/13/2023 13:25:53 cholecystectomy completed Jillian Calderón [place] - [facility] [place] 12/13/2023 13:18:28 Imaging Results Imaging Date Name [...] Name and Address Organization Details Recorded Time 910963 codeine medicatio n Not available Not available Not available 12/13/2023 2670 RxNorm Jillian Calderón [facility] 13:17:14 Medications Name Sig Start Date Stop [...] Details Last Updated DateTime 12/13/2023 160.02 cm 07156.89 g Jillian Calderón [place] - [facility] [place] 12/13/2023 13:45:28 Social History None recorded. Functional [...] Diagnosis/Indication Diagnosis SNOMED-CT Code Diagnosis ICD10 Code Diagnosis Note [id number] ROD DIALLO MD [facility] [address] [place] [address] 12/13/2023 12:47:56 12/13/2023 14:41:23 Peripheral neuropathy due to type 2 diabetes mellitus 2851228220 107 E11.42 Type 2 viji betes mellitus 14919007 E11.49 Unsteady when walking 22 450793 R26.89 Musculoske letal finding 500462213 R29.898 Sensorineu ral hearing loss of bilateral ears 669698137 H90.3 Audiologic al evaluation results:Ri ght ear:{{Norm al sloping Mi ld* Modera te Moderat briseida-severe Severe Pr ofound Nor mal auditory thresholds }} to {{mild mod erate mode rately-sev ere severe * profound with}} {{sensorin eural hearing loss with* cond uctive hearing loss with mixed hearing loss with}} {{excellen t* good fa ir poor no t measurable }} word recognitio n.Left ear:{{Norm al sloping* M ild Modera te Moderat briseida-severe Severe Pr ofound Nor mal auditory thresholds }} to {{mild mod erate mode rately-sev ere severe * profound with}} {{sensorin eural hearing loss with* cond uctive hearing loss with mixed hearing loss with}} {{excellen t* good fa ir poor no t measurable }} word recognitio n.Tympanom etry:Right Ear:{{Type A* Type As Type Ad Type C Type C, shallow & rounded Ty pe B Type B with large volume Cou ld not maintain a hermetic seal}}Left Ear:{{Type A Type As* Type Ad Type C Type C, shallow & rounded Ty pe B Type B with large volume Cou ld not maintain a hermetic seal}}Heather ent's audiogram shows bilateral {{mild mod erate* sev ere}} sensorineu ral hearing loss with {{well maintained * moderate ly reduced po or}} speech discrimina tion. There is enough hearing loss to affect day-to-day hearing performanc e. We discussed in detail the pros and cons of amplificat ion (hearing aids). We discussed the connection between untreated hearing loss and increased risk of dementia, falling and accidents. After full discussion , the patient expressed {{interest * no interest}} in learning more about amplificat ion options. Accordingl y {{we will set them up for a hearing aid evaluation * I have provided a copy of the audiogram and medical clearance for amplificat ion so the patient can pursue this at their convenienc e I have provided a copy of the audiogram, a list of [facility] hearing aid providers, and medical clearance for amplificat ion so the patient can pursue this at their convenienc e}}. Patient is medically cleared for amplificat ion {{in the right ear in the left ear bilate rally*}}. We did discuss how untreated hearing loss has recently been shown to be a risk factor for balance disturbanc e, fall, and accidents. Benign par oxysmal positional vertigo 393621254 H81.12 Health Concerns Section Related Observation LastModified by Organization Detai ls LastModified Time None Recorded Concern Status LastModified by Organization Details LastModified Time None Recorded Advance Directives Directive None Recorded Payers Encounter Date Sequence Insurance Name Policy Number Policy Lauren Covered Member ID Lauren Member ID Guarantor Name 12/13/2023 1 [facility] - [facility] - SENIOR PLAN (MEDICARE REPLACEMENT/ ADVANTAGE - HMO) Joi Velasco [id number] Joi Velasco Notes Date Note Type Note Provider Name and Address Organization Details Recorded Time 12/13/2023 text/html 78-year-old fema tanisha with history of diabetes and diabetic neuropathy, [...] unsteady on her feet. ROD DIALLO MD [address] [place] [address], [phone], [place] - [facility] 12/13/2023 14:44:35 OBGyn Episode No OBEpisode recorded.
== END 2024-08-28 16:55 | disposition home or self-care (01) ==
LOC: HO.HMCFM 15:44
PROVIDERS: PCP Family Medicine; Visit Provider Family Medicine
DX: E11.9 Type 2 diabetes mellitus without complications (principal); M51.379 Other intervertebral disc degeneration, lumbosacral region without mention of lumbar back pain or lower extremity pain; L29.9 Pruritus, unspecified; I10 Essential (primary) hypertension; D48.5 Neoplasm of uncertain behavior of skin

== ENCOUNTER → 2024-08-28 15:44 | Outpatient (BNVA) | payer OTHER, SELFPAY | PROVIDERS: PCP Family Medicine; Visit Provider Family Medicine | DX: E11.9 Type 2 diabetes mellitus without complications (principal); M51.379 Other intervertebral disc degeneration, lumbosacral region without mention of lumbar back pain or lower extremity pain; I10 Essential (primary) hypertension; L29.89 Other pruritus; D48.5 Neoplasm of uncertain behavior of skin | CPT/HCPCS: 83036 ==

== ENCOUNTER 2024-10-17 13:00 | Outpatient (AMB) | payer OTHER, SELFPAY ==
[2024-10-17 13:07] VITALS: BP 114/70; PULSE 80; O2SAT 96; BMI 26.1
--- NOTE | 2024-10-17 13:07 | A.OFFVIS_ITS ---
Vital Signs 10/17/24 13:07 Height 5 ft 3 in Weight 147 lb 2 oz BMI 26.1 BP 114/70 Blood Pressure Location Lt brachial Position Sitting Pulse 80 Pulse Source Pulse Oximeter Pulse Oximetry (%) 96 Oxygen Delivery Method Room Air Intake Visit Reasons: INP- Hypersomnia Intake Note: Patient presents YACHT BUILDER Hypersomnia. Significant fatigue and hypersomnia. Patient has history of PMR and is followed by rheumatology. However, patient has significant sleep disturbances, hypersomnia and unrestful sleep. Likely sleep apnea. Patient states she has vertigo. Lost son while ago and has nightmares about her son. Allergies codeine Allergy (Unknown, Verified 10/17/24 13:11) Unknown HPI Comments Details: 79 year old female is here for a sleep evaluation, referred to us by her PCP. She has hypersomnia, with fatigue, PMR, with unrestful sleep, and T2DM A1c was 7.2 being managed with his PCP. She has difficulty breathing when the heat is on and when the windows are open it is suman. She has a chihuahua and cat, mancoon. H/o cancer sister passed 70 due to pulmonary nodule, niece passed due to breast cancer. Brother passed in his 40s due to [place]. She can ruminate for hours when she goes to bed at 11pm and is up until 3am, then goes up for the bathroom 1-2x a night. She goes back to bed and lays for a while and finally at 4am she falls asleep. Lost her son years ago and is having nightmares daily, with the same fear inducing visitations of her son. She fell in a year ago due to vertigo, loses her balance and gets dizzy when her gait is off, she uses a cane and walker to ambulate as needed, she went to PT for exercises. She lives alone and in shelter independent in all ADLs [facility]. Her vision is good she had cataract surgery 8 months ago, hearing is okay, l. ear feels full and blocked, sound is muffled. She has night sweats for the last 4 months and now during the day. She has RLS, and moves her legs all night long. Cognitive decline, her mood and memory is stable. Lower back pain, and cyst on her last lumbar spine MRI. [facility] Medical History DDD (degenerative disc disease), lumbosacral Lumbar spondylitis Chronic lower back pain Bilateral hand pain Type 2 diabetes mellitus Anxiety Depression Surgical History No pertinent past surgical history Family History Sister Substance abuse Social History Housing: Apartment Alcohol intake: never Patient Tobacco Use Status: Former Tobacco user e-Cigarette/Vaping Use: Never Used service: No Current occupational status: retired Cognitive needs: No Hearing needs: No Vision needs: No (needs to have eyes checked.) Physical Exam Vital Signs: Last Vital Signs Pulse 80 10/17/24 13:07 BP 114/70 10/17/24 13:07 Pulse Ox 96 10/17/24 13:07 Oxygen Delivery Method Room Air 10/17/24 13:07 BMI result Body Mass Index 26.1 Const General: cooperative, comfortable and no acute distress Nutritional Appearance: average body habitus Orientation/consciousness: patient oriented x3 HEENT Face and sinus: Yes face symmetric Teeth and gingiva: other (mallampti score of 3) Eyes Pupils: Equal, round and reactive pupils present Resp Effort & Inspection: normal respiratory effort and able to speak in complete sentences Neuro General: patient oriented x3 and moves all extremities Cranial nerves: Yes Equal, round and reactive pupils present, Yes Normal accommodation reflex present, Yes Normal facial strength present, Yes Midline tongue present, Yes Ability to bilaterally rotate head present and Yes Ability to bilaterally elevate shoulders present Gait exam (Neuro): Antalgic gait present and Assisted gait required Motor exam (neuro): 5/5 motor strength present throughout, no tremor noted and Normal motor muscle tone present throughout Deep tendon reflexes (DTR's): Right triceps reflex intensity grade: 2+, Left triceps reflex intensity grade: 2+, Rt Biceps (C5, C6): 2+, Left biceps reflex intensity grade: 2+, Right brachioradialis reflex intensity grade: 2+, Left brachioradialis reflex intensity grade: 2+, Right patellar reflex intensity grade: 2+, Left patellar reflex intensity grade: 2+, Right ankle reflex intensity grade: 2+ and Left ankle reflex intensity grade: 2+ Coordination: [id number] test normal Psych Appearance: grossly normal Affect: normal affect Thought process: Normal thought process present Assessment & Plan Assessment & Plan (1) Fatigue: Code(s): R53.83 - Other fatigue Category: Medical Plan HsT BENTLEY? Sleep apnea evaluation labs r/o deficiencies Orders: Orders Complete Blood Count no Diff Today R53.83 - Other fatigue Comprehensive Met. Panel Today R53.83 - Other fatigue Hemoglobin A1c Today R53.83 - Other fatigue Ferritin Today R53.83 - Other fatigue Methylmalonic Acid Today G47.9 - Sleep disorder, unspecified, R53.83 - Other fatigue TSH reflex Free T4 Today R53.83 - Other fatigue RT home sleep study 10/17/24 G47.19 - Other hypersomnia Homocysteine Today G47.9 - Sleep disorder, unspecified, R53.83 - Other fatigue Vitamin B12 and Folate Today R53.83 - Other fatigue Vitamin D 25-OH Total Today R53.83 - Other fatigue Patient Instructions: Sleep Hygiene provided: set a scheduled bedtime and wake time to help regulate the circadian rhythm and balance the release of pituitary hormones. Sleep in a dark room, temperatures below 68 degrees, and no devices n bed. Limit caffeinated products 6 hours prior to bed, and limit fluids 2-4 hours prior to bed. Gentle night yoga, diffusing essential oils, and playing soft music can be relaxing. Coding Level of Care Code New Pt Level 4 (32833) Diagnoses Fatigue R53.83 Time Spent (min) 30 Comment evaluation Sleep Questionnaire Difficulty falling asleep: Yes Difficulty staying asleep?: Yes Number of arousals: 2 Snoring: No Witnessed apneas: No Gasping arousals: No Nocturia: No GERD: No Vivid dreams: Yes Acting out dreams: Yes Abnormal behavior in sleep: No Abnormal movements in sleep: No Morning headaches: Yes Excessive daytime sleepiness: Yes Daytime naps: No Restless legs: Yes Hallucinations: No Sleep paralysis: No Drop attacks: No Sleep Study: No CPAP: No
--- OUTSIDE RECORDS SUMMARY | 2024-10-17 13:22 | XMS_ITS | Data Portability ---
Author Organization [place] - [facility], Allergy Address [address] [address] Care Team Providers Care Display Director Name Role Phone JOHNSON PATRICIO Primary Care [...] factor here appears to be left BPPV. Pella-Hallpike was positive for vertigo and rotary nystagmus with the head to the left. We discussed that the patient? s pattern of symptoms and physical exam findings are most consistent with benign paroxysmal positional vertigo (BPPV). The pathophysiology of BPPV was discussed in detail. Patient was provided with a referral to [facility] for Rustam maneuvers and vestibular therapy.We discussed the fact that treatment of BPPV can require anywhere from 1 to 6 treatments for successful results, and has approximately 95% success rate in eliminating symptoms. BPPV can recur and if the classic positionally induced symptoms do recur, patient can call for further referrals. I specifically recommended she see Rhiannon Carr at [facility] who is skilled at dealing with recalcitrant BPPV. Not available 12/13/2023 14:43:35 Plan of Treatment [...] neuropathy due to type 2 diabetes mellitus [id number] Active 2023 ROD DIALLO MD [address] [place] [address], [facility] [place], [address], [place] - [facility] 19:37:02 Type 2 diabetes mellitus 40624569 Active 2023 ROD DIALLO MD [address] [place] [address], [facility] [place], [address], [place] - [facility] [place] 19:37:51 Unsteady when walking 56028803 Active 2023 ROD DIALLO MD [address] [address], [facility] [place], [address], [place] - [facility] [place] 19:38:05 Muscle weakness of limb 005091899 Active 2023 ROD DIALLO MD [address] [place] [address], [place], [address], [place] - [facility] [place] 19:39:46 Musculoskel etal finding 228200176 Active 2023 ROD DIALLO MD [address] [address], [place], [address], [facility] - [facility] 19:40:14 Sensorineur al hearing loss of bilateral ears 547898235 Active 2023 MAYTE LR [address] [address], [place], [address], [facility] - [facility] [place] 4 13:29:32 Benign paroxysmal positional vertigo 550044348 Active 2023 ROD DIALLO MD [address] [address], [place], [address], [facility] - [facility] 14:28:31 Problem Notes None recorded. Procedures Surgical History Date Name Laterality Status Provider Name and Address Organization Details Recorded Time 12/13/19 24 Comp Audio with Tymps - 51418 & 42808 completed MAYTE LR [address] [place] [address], [address], [facility] - [facility] 12/13/2023 13:25:53 cholecystectomy completed Jillian Calderón [place] - [facility] [place] 12/13/2023 13:18:28 Imaging Results None recorded. Procedure Notes None recorded. Medical Equipment None Reported. Allergies Allergen ID Allergen Name Allergen Category Reaction Reaction Severity Criticality Documentation Date Start Date Code Code System Note Provider Name and Address Organization Details Recorded Time 607265 codeine medicatio n Not available Not available Not available 12/13/2023 2670 RxNorm Jillian campos [facility] 13:17:14 Medications Name Sig Start Date Stop Date Status Note LastModified by Organization Details LastModified Time glucerna carbsteady liqd 12/12 completed Not Available Not Available Not Available azithromyci n 250 mg tablet 12/12 completed Not Available Not Available Not Available amoxicillin 500 mg tablet TAKE 2 TABLETS BY MOUTH EVERY 8 HOURS FOR 10 DAYS 12/12 completed Not Available Not Available Not Available LumatixTouch Ultra Test strips USE TO TEST BLOOD [...] Details Last Updated DateTime 12/13/2023 160.02 cm 40211.89 g Jillian Calderón [place] - [facility] 12/13/2023 13:45:28 Social History None recorded. Functional Status None recorded. Mental Status None recorded. Family History Nothing Reported. Medical History Condition Response Anxiety Y Migraines Y Diabetes Y Arthritis Y High Cholesterol Y Hypertension Y Gynecological HistoryNo gynecological history recorded. Obstetrics History GPAL:G 0 P 0 0 0 0 Past Encounters Encounter ID Performer Location Encounter Start Date Encounter Closed Date Diagnosis/Indication Diagnosis SNOMED-CT Code Diagnosis ICD10 Code Diagnosis Note [id number] ROD DIALLO MD [facility] [address] [place] [address] 12/13/2023 12:47:56 12/13/2023 14:41:23 Peripheral neuropathy due to type 2 diabetes mellitus 7051911111 107 E11.42 Type 2 viji betes mellitus 00174490 E11.49 Unsteady when walking 22 045575 R26.89 Musculoske letal finding 174594658 R29.898 Sensorineu ral hearing loss of bilateral ears 608387898 H90.3 Audiologic al evaluation results:Ri ght ear:Mild to severe sensorineu ral hearing loss with excellent word recognitio n.Left ear:Normal sloping to severe sensorineu ral hearing loss with excellent word recognitio n.Tympanom etry:Right Ear:Type ALeft Ear:Type AsPatient' s audiogram shows bilateral moderate sensorineu ral hearing loss with well maintained speech discrimina tion. There is enough hearing loss to affect day-to-day hearing performanc e. We discussed in detail the pros and cons of amplificat ion (hearing aids). We discussed the connection between untreated hearing loss and increased risk of dementia, falling and accidents. After full discussion , the patient expressed interest in learning more about amplificat ion options. Accordingl y we will set them up for a hearing aid evaluation . Patient is medically cleared for amplificat ion bilaterall y. We did discuss how untreated hearing loss has recently been shown to be a risk factor for balance disturbanc e, fall, and accidents. Benign par oxysmal positional vertigo 892571334 H81.12 Health Concerns Section Related Observation LastModified by Organization Detai ls LastModified Time None Recorded Concern Status LastModified by Organization Details LastModified Time None Recorded Advance Directives Directive None Recorded Payers Insurance Date Sequence Insurance Name Policy Number Policy Lauren Covered Member ID Lauren Member ID Guarantor Name 07/31/2024 1 [facility] - DUAL ELIGIBLE - [employer] - SENIOR PLAN (MEDICARE REPLACEMENT/ ADVANTAGE - HMO) Joi Velasco [id number] Joi Velasco Notes Date Note Type Note [...] unsteady on her feet. ROD DIALLO MD [address] [place] [address], [place], [address], [facility] - [facility] 12/13/2023 14:44:35 OBGyn Episode No OBEpisode recorded.
== END 2024-10-17 14:23 | disposition home or self-care (01) ==
LOC: HO.HSMS 13:01
PROVIDERS: PCP Family Medicine; Visit Provider Physician Assistant Medical
DX: R53.83 Other fatigue (principal)
CPT/HCPCS: 99204

== ENCOUNTER → 2024-10-17 13:00 | Outpatient (BNVA) | payer OTHER, SELFPAY | PROVIDERS: PCP Family Medicine; Visit Provider Physician Assistant Medical ==

== ENCOUNTER 2024-11-27 10:33 | Outpatient (REF) | payer OTHER, SELFPAY ==
--- OUTSIDE RECORDS SUMMARY | 2024-11-27 11:50 | XMS_ITS | Data Portability ---
Author Organization [place] - [facility], Allergy Address [address] [address] Care Team Providers Care Electrical Transmission Engineer Name Role Phone JOHNSON PATRICIO Primary Care Provider [phone] Assessment Encounter Date Assessment Date Assessment LastModified [...] factor here appears to be left BPPV. Dumas-Hallpike was positive for vertigo and rotary nystagmus with the head to the left. We discussed that the patient s pattern of symptoms and physical exam findings are most consistent with benign paroxysmal positional vertigo (BPPV). The pathophysiology of BPPV was discussed in detail. Patient was provided with a referral to [facility] for Rustam maneuvers and vestibular therapy.We discussed the fact that treatment of BPPV can require anywhere from 1 to 6 treatments for successful results, and has approximately 95% success rate in eliminating symptoms. BPPV can recur and if the classic positionally induced symptoms do recur, patient can call for further referrals. I specifically recommended she see Rhiannon Carr at [facility] who is skilled at dealing with [...] neuropathy due to type 2 diabetes mellitus 7425712801446 Active 2023 ROD DIALLO MD [address] [place] [address], [facility] [place], [address], [place] - [facility] 19:37:02 Type 2 diabetes mellitus 11635815 Active 2023 ROD DIALLO MD [address] [place] [address], [place], [address], [place] - [facility] [place] 19:37:51 Unsteady when walking 48399253 Active 2023 ROD DIALLO MD [address] [place] [address], [place], [address], [place] - [facility] [place] [facility] 19:38:05 Muscle weakness of limb 282774953 Active 2023 ROD DIALLO MD [address] [place] [address], [facility] [place], [address], [place] [facility] [place] 19:39:46 Musculoskel etal finding 435177481 Active 2023 ROD DIALLO MD [address] [address], [place], [address], [facility] - [facility] 19:40:14 Sensorineur al hearing loss of bilateral ears 153447902 Active 2023 MAYTE LR [address] [address], [place], [address], [facility] - [facility] 4 13:29:32 Benign paroxysmal positional vertigo 091651474 Active 2023 ROD DIALLO MD [address] [address], [place], [address], [facility] 14:28:31 Problem Notes None recorded. Procedures Surgical History Date Name Laterality Status Provider Name and Address Organization Details Recorded Time 12/13/19 24 Comp Audio with Tymps - 96933 & 86246 completed MAYTE LR [address] [place] [address], [address], [facility] - [facility] 12/13/2023 13:25:53 cholecystectomy completed Jillian Calderón [place] - [facility] 12/13/2023 13:18:28 Imaging Results None recorded. Procedure Notes None recorded. Medical Equipment None Reported. Allergies Allergen ID Allergen Name Allergen Category Reaction Reaction Severity Criticality Documentation Date Start Date Code Code System Note Provider Name and Address Organization Details Recorded Time 776213 codeine medicatio n Not available Not available Not available 12/13/2023 2670 RxNorm Jillian campos [facility] 13:17:14 Medications Name Sig Start Date Stop Date Status Note LastModified by Organization Details LastModified Time glucerna carbsteady liqd 12/12 completed Not Available Not Available Not Available azithromyci n 250 mg tablet 12/12 completed Not Available Not Available Not Available amoxicillin 500 mg tablet TAKE 2 TABLETS BY MOUTH EVERY 8 HOURS FOR 10 DAYS 12/12 completed Not Available Not Available Not Available Rooftop DownTouch Ultra Test strips USE TO TEST BLOOD [...] Details Last Updated DateTime 12/13/2023 160.02 cm 31781.89 g Jillian Calderón [place] - [facility] 12/13/2023 13:45:28 Social History None recorded. Functional Status None recorded. Mental Status None recorded. Family History Nothing Reported. Medical History Condition Response Diabetes Y Arthritis Y Anxiety Y Migraines Y High Cholesterol Y Hypertension Y Gynecological HistoryNo gynecological history recorded. Obstetrics History GPAL:G 0 P 0 0 0 0 Past Encounters Encounter ID Performer Location Encounter Start Date Encounter Closed Date Diagnosis/Indication Diagnosis SNOMED-CT Code Diagnosis ICD10 Code Diagnosis Note [id number] ROD DIALLO MD [facility] [address] [address] 12/13/2023 12:47:56 12/13/2023 14:41:23 Peripheral neuropathy due to type 2 diabetes mellitus 7710339627 107 E11.42 Type 2 viji betes mellitus 39417412 E11.49 Unsteady when walking 22 883920 R26.89 Musculoske letal finding 502705207 R29.898 Sensorineu ral hearing loss of bilateral ears 021895365 H90.3 Audiologic al evaluation results:Ri ght ear:Mild [...] and accidents. Benign par oxysmal positional vertigo 331654933 H81.12 Health Concerns Section Related Observation LastModified by Organization Detai ls LastModified Time None Recorded Concern Status LastModified by Organization Details LastModified Time None Recorded Advance Directives Directive None Recorded Payers Insurance Date Sequence Insurance Name Policy Number Policy Lauren Covered Member ID Lauren Member ID Guarantor Name 07/31/2024 1 QUYEN [facility] - DUAL ELIGIBLE - [employer] - SENIOR PLAN (MEDICARE REPLACEMENT/ ADVANTAGE - HMO) Joi Velasco [id number] Joi Velasco Notes Date Note Type Note [...] unsteady on her feet. ROD DIALLO MD [address] [place] [address], [place], [address], [facility] - [facility] 12/13/2023 14:44:35 OBGyn Episode No OBEpisode recorded.
[2024-11-27 14:53] LABS: Hematocrit 37.5 % (37.0-47.0); Hemoglobin 12.3 g/dl (12.0-16.0); Mean Corpuscular HGB Conc 32.8 g/dl (31.0-35.0); Mean Corpuscular Hemoglobin 29.4 pg (27.0-33.0); Mean Corpuscular Volume 89.5 fL (80.0-98.0); NRBC Abs Auto 0.000 X10*3/uL (0.0-0.012); NRBC Pct Auto 0.0 /100WBC (0.0-0.2); Platelet Count 223 X10*3/uL (160-400); Red Blood Count 4.19 X10*6/uL (4.20-5.50); White Blood Count 7.4 X10*3/uL (4.8-10.8)
[2024-11-27 15:03] LABS: Hemoglobin A1C 165.7281 umol/L; Total Hemoglobin (HGBA1C) 3318.9792 umol/L
[2024-11-27 15:14] LABS: Alanine Aminotransferase 10 U/L (0-31); Albumin Level 4.4 g/dL (3.5-5.0); Alkaline Phosphatase 52 U/L (39-117); Anion Gap 14 (12-20); Aspartate Amino Transferase 17 U/L (5-31); Blood Urea Nitrogen 13 mg/dL (9-16); Calcium 9.4 mg/dL (8.4-10.2); Carbon Dioxide 26 mmol/L (22-29); Chloride 105 mmol/L (96-108); Estimated Glomerular Filt Rate > 60; Potassium 4.1 mmol/L (3.3-5.1); Sodium 141 mmol/L (135-145); Total Protein 6.8 g/dL (6.5-8.0)
[2024-11-27 15:29] LABS: Ferritin 22 ng/mL (10-250)
[2024-11-27 15:36] LABS: Folate 11.0 ng/mL (> or = 4.0); Vitamin B12 916 pg/mL (200-900)
== END 2024-11-27 10:34 | disposition home or self-care (01) ==
LOC: HO.WFDLDS 10:33
PROVIDERS: Referring Provider Physician Assistant Medical; Visit Provider Family Medicine
DX: Z00.00 Encounter for general adult medical examination without abnormal findings (principal); R53.83 Other fatigue; G47.9 Sleep disorder, unspecified; E55.9 Vitamin D deficiency, unspecified; E53.8 Deficiency of other specified B group vitamins
CPT/HCPCS: 36415; 80053; 82306; 82607; 82728; 82746; 83036; 83921; 84443; 85027

== ENCOUNTER 2025-02-19 11:30 | Outpatient (REF) | payer OTHER, SELFPAY ==
[2025-02-19 14:55] LABS: Hemoglobin A1C 148.4067 umol/L
[2025-02-19 15:14] LABS: Microalbum/Creatinine Ratio Ur 11.6 ug/mg cr (<30)
[2025-02-19 15:16] LABS: Alanine Aminotransferase 11 U/L (0-31); Albumin Level 4.4 g/dL (3.5-5.0); Alkaline Phosphatase 59 U/L (39-117); Anion Gap 13 (12-20); Aspartate Amino Transferase 19 U/L (5-31); Blood Urea Nitrogen 17 mg/dL (9-16); Calcium 9.6 mg/dL (8.4-10.2); Carbon Dioxide 27 mmol/L (22-29); Chloride 107 mmol/L (96-108); Cholesterol 169 mg/dL (<200); Estimated Glomerular Filt Rate > 60; HDL Cholesterol 57 mg/dL (>40); Potassium 4.1 mmol/L (3.3-5.1); Sodium 143 mmol/L (135-145); Total Protein 7.1 g/dL (6.5-8.0); Triglycerides 153 mg/dL (<150)
[2025-02-19 15:32] LABS: Folate 12.4 ng/mL (> or = 4.0); Vitamin B12 475 pg/mL (200-900)
== END 2025-02-19 11:31 | disposition home or self-care (01) ==
LOC: HO.WFDLDS 11:30
PROVIDERS: Referring Provider Nurse Practitioner Family; Visit Provider Family Medicine
DX: E53.8 Deficiency of other specified B group vitamins (principal); R53.83 Other fatigue; E11.9 Type 2 diabetes mellitus without complications; I10 Essential (primary) hypertension; E55.9 Vitamin D deficiency, unspecified
CPT/HCPCS: 36415; 80053; 80061; 82043; 82306; 82570; 82607; 82746; 83036

== ENCOUNTER 2025-02-25 15:41 | Outpatient (AMB) | payer OTHER, SELFPAY ==
--- NOTE | 2025-02-25 15:42 | A.OFFPC_ITS ---
Vital Signs 02/25/25 15:46 Height 5 ft 3 in Weight 144 lb BMI 25.5 BP 126/68 Blood Pressure Location Rt brachial Position Sitting Respiration 15 Pulse 85 Pulse Source Pulse Oximeter Temp 97.7 F Temp Source Temporal Artery Scan Pulse Oximetry (%) 95 Oxygen Delivery Method Room Air Intake Visit Reasons: f/u diabetes, labs, chronic conditions,resched Intake Note: Joi presents in the office today for a follow up to diabetes, her lab results and other chronic conditions. Allergies codeine Allergy (Unknown, Verified 02/25/25 15:44) Unknown Tobacco use date assessed: 02/25/25 Fall risk assessment: 1 Fall in past year Last assessed Fall Risk: 02/25/25 Dental Screening Dental Screen Date: 02/25/25 Did you have a dental visit in the last 12 months?: No Did you have a dental problem in the last 6 months where you did not have access to dental care?: No Was dental information given to patient?: Patient declined HPI f/u diabetes, labs, chronic conditions,resched HPI Details 79 y/o female presents to f/u diabetes, chronic conditions. Labs drawn 02/19/25. Reviewed labs with pt. A1c 6.4%. She is on metformin 1000mg, glipizide 10mg daily. Triglycerides 153. TC 169. LDL 82. HDL 57. Vitamin D 59.8 ng/mL. Pt notes she does not feel well today - she notes she feels she is coming down with a cold and reports chills since yesterday. Pt notes she wakes up sweating at times and gets intermittent flushing. Pt notes medication regimen for her mood has not been working. She states she feels depressed. Does not have a therapist. HPI Comments History of Present Illness Details Documentation assistance for Yonny Tripathi MD, was provided by Carmelo Carlisle,? Adjunct Professor Of Law on 02/25/2025 at 3:55 PM EST. I, Dr. Tripathi, have read, observed, and verified documentation. ? PFSH Medical History (Updated 02/25/25 @ 16:42 by Carmelo Carlisle) DDD (degenerative disc disease), lumbosacral Lumbar spondylitis Chronic lower back pain Bilateral hand pain Type 2 diabetes mellitus Anxiety Depression Surgical History No pertinent past surgical history Family History Sister Substance abuse Social History (Updated 02/25/25 @ 15:46 by Jacqueline Garcia CMA) Housing: Apartment Alcohol intake: never Patient Tobacco Use Status: Former Tobacco user e-Cigarette/Vaping Use: Never Used Second Hand Smoke Exposure: No service: No Current occupational status: retired Cognitive needs: No Hearing needs: No Vision needs: No (needs to have eyes checked.) Questionnaire Thrive Questionnaire Date Thrive assessed: 03/28/24 I am a: Patient What is your living situation today?: I have a steady place to live Within the past 12 months, did the food you bought not last and you didn't have the money to get more?: Sometimes True Within the past 12 months, did you worry whether your food would run out before you got money to buy more?: Sometimes True Do you have trouble paying for medicines?: No Do you have trouble getting transportation to medical appointments?: No Do you have trouble paying your heating and electricity bill?: No Do you have trouble taking care of your child, family member or friend?: No Do you have trouble with day-to-day activities such as bathing, preparing meals, shopping, managing finances, etc.?: No Are you currently unemployed and looking for a job?: No Are you interested in more education?: No Please select the resources that you would like help with: None Currently or been in a relationship where the following occur: I choose not to answer THRIVE Score: 2 Review of Systems Const Denies chills, Denies fatigue, Denies fever(s), Denies headache(s) and Denies weakness ENT Denies dizziness and Denies headache(s) Card Denies dyspnea Resp Denies cough, Denies dyspnea, Denies wheezing and Denies other (shortness of breath) Musc Denies numbness and Denies tingling Neuro Denies dizziness, Denies headache(s), Denies numbness, Denies tingling and Denies weakness Psych Reports anxiety and Reports depression Endo Denies fatigue Aller/Immun Denies wheezing Physical exam (Primary Care) Vital Signs: Last Vital Signs Temp 97.7 F 02/25/25 15:46 Pulse 85 02/25/25 15:46 Resp 15 02/25/25 15:46 BP 126/68 02/25/25 15:46 Pulse Ox 95 02/25/25 15:46 Oxygen Delivery Method Room Air 02/25/25 15:46 BMI result Body Mass Index 25.5 Tobacco/Smoking Status: Tobacco use Status Tobacco use date assessed 02/25/25 02/25/25 15:49 Patient Tobacco Use Status Former Tobacco user 02/25/25 15:46 e-Cigarette/Vaping Use Never Used 02/25/25 15:46 Thrive Assessment: Date of Thrive Assessment Date Thrive assessed 03/28/24 02/25/25 15:44 Currently or been in a relationship where the following occur: I choose not to answer Const General: well developed; No acute distress Nutritional Appearance: well nourished Orientation/consciousness: patient oriented x3 HENMT Head: Yes normocephalic and Yes atraumatic Eyes General: appearance normal, both eyes and all related structures Pupils: Equal, round and reactive pupils present EOM: EOMs intact bilaterally Resp Effort & Inspection: normal respiratory effort Neuro General: patient oriented x3 and gait normal Cranial nerves: Yes Equal, round and reactive pupils present Psych Affect: normal affect Coding Level of Care Code Est Pt Level 5 (12515) Diagnoses Type 2 diabetes mellitus E11.9 Hypertension I10 Malaise R53.81 Hot flashes R23.2 Depression with anxiety F41.8 Abnormal EKG R94.31 Assessment & Plan Assessment & Plan (1) Type 2 diabetes mellitus: Code(s): E11.9 - Type 2 diabetes mellitus without complications Category: Medical Plan: A1c 6.4%. Good control. Goal is about 7% Continue current medications (2) Hypertension: Code(s): I10 - Essential (primary) hypertension Category: Medical Plan: Blood pressure is well controlled. Goal is less than 140/90 Continue medication (3) Malaise: Code(s): R53.81 - Other malaise Category: Medical (4) Hot flashes: Code(s): R23.2 - Flushing Category: Medical (5) Depression with anxiety: Code(s): F41.8 - Other specified anxiety disorders Category: Medical Plan: Ongoing depression She does not feel that sertraline is helping and would like to switch this - will change to citalopram Referred to [facility] outpatient psychiatric consult team (6) Abnormal EKG: Code(s): R94.31 - Abnormal electrocardiogram [ECG] [EKG] Category: Medical Plan Complaints of intermittent malaise and sweatiness or flushing particularly 1st thing in the morning Have referred her to sleep medicine to rule out sleep apnea but she has not had this done yet. She does say that her sleep has been better lately. She notes that she seems to have anxiety 1st and then symptoms EKG: Normal sinus rhythm, normal axis, no hypertrophy, anteroseptal infarct, age undetermined, no ischemia. Will refer her to Cardiology Check echo Orders: Orders Complete Blood Count Auto Diff 02/25/25 R53.81 - Other malaise, Z00.00 - Encounter for general adult medical examination without abnormal findings TSH reflex Free T4 02/25/25 R53.81 - Other malaise, Z00.00 - Encounter for general adult medical examination without abnormal findings CA echo transthoracic complete 02/25/25 R94.31 - Abnormal electrocardiogram [ECG] [EKG] Basic Metabolic Panel 02/25/25 R53.81 - Other malaise, Z00.00 - Encounter for general adult medical examination without abnormal findings Metanephrines, Plasma 02/25/25 R23.2 - Flushing Erythrocyte Sedimentation Rate 02/25/25 R23.2 - [place] CRP High Sensitivity 02/25/25 R23.2 - [place] UA CC w/rflx Micro + Cult 02/25/25 R23.2 - [place], Z00.00 - Encounter for general adult medical examination without abnormal findings Referrals Cardiology Referral R23.2 - [place], R53.81 - Other malaise, R53.83 - Other fatigue, R94.31 - Abnormal electrocardiogram [ECG] [EKG] Psychiatry Outpatient Consultation Service F41.8 - Other specified anxiety disorders Medications: New citalopram 20 mg PO DAILY 30 tabs 3RF 30 days Discontinued sertraline Discontinued Reason: Doctor's Order 75 mg (1.5 x 50 mg) PO DAILY 90 days 135 tabs 2RF
[2025-02-25 15:46] VITALS: BP 126/68; PULSE 85; RESP 15; TEMP 36.5; O2SAT 95; BMI 25.5
== END 2025-02-25 16:38 | disposition home or self-care (01) ==
LOC: HO.HMCFM 15:42
PROVIDERS: PCP Family Medicine; Visit Provider Family Medicine
DX: E11.9 Type 2 diabetes mellitus without complications (principal); I10 Essential (primary) hypertension; R53.81 Other malaise; R23.2 Flushing; F41.8 Other specified anxiety disorders; R94.31 Abnormal electrocardiogram [ECG] [EKG]

== ENCOUNTER → 2025-02-25 15:41 | Outpatient (BNVA) | payer OTHER, SELFPAY | PROVIDERS: PCP Family Medicine; Visit Provider Family Medicine | DX: E11.9 Type 2 diabetes mellitus without complications (principal); I10 Essential (primary) hypertension; R53.81 Other malaise; R23.2 Flushing; F41.8 Other specified anxiety disorders; R94.31 Abnormal electrocardiogram [ECG] [EKG]; Z79.84 Long term (current) use of oral hypoglycemic drugs | CPT/HCPCS: 93005 ==

== ENCOUNTER 2025-03-14 15:23 | Outpatient (REF) | payer OTHER, SELFPAY ==
[2025-03-14 17:31] LABS: MANUAL DIFF FLAG NO
[2025-03-14 17:46] LABS: Appearance Urine Clear; Glucose Urine UA Negative (Negative); PH 6.5 (5.0-9.0); Specific Gravity - Urine 1.015 (1.005-1.025); UMIC TRIGGER UACC YES
[2025-03-14 17:51] LABS: White Blood Count 7.0 X10*3/uL (4.8-10.8)
[2025-03-14 17:52] LABS: Hematocrit 38.6 % (37.0-47.0); Hemoglobin 12.2 g/dl (12.0-16.0); Imm Gran Abs Auto 0.05 X10*3/uL (0.00-0.03); Imm Gran Pct Auto 0.7 % (0.0-0.4); Lymphocytes Absolute Auto 1.8 X10*3/uL (1.2-4.9); Mean Corpuscular HGB Conc 31.6 g/dl (31.0-35.0); Mean Corpuscular Hemoglobin 29.0 pg (27.0-33.0); Mean Corpuscular Volume 91.7 fL (80.0-98.0); NRBC Abs Auto 0.000 X10*3/uL (0.0-0.012); NRBC Pct Auto 0.0 /100WBC (0.0-0.2); Platelet Count 221 X10*3/uL (160-400); Red Blood Count 4.21 X10*6/uL (4.20-5.50)
--- OUTSIDE RECORDS SUMMARY | 2025-03-14 17:59 | XMS_ITS | Data Portability ---
Author Organization [place] - [facility], Allergy Address [address] [address] Care Team Providers Care Vocational Training Teacher Name Role Phone JOHNSON PATRICIO Primary Care [...] factor here appears to be left BPPV. [place]-Hallpike was positive for vertigo and rotary nystagmus with the head to the left. We discussed that the patient s pattern of symptoms and physical exam findings are most consistent with benign paroxysmal positional vertigo (BPPV). The pathophysiology of BPPV was discussed in detail. Patient was provided with a referral to [facility] for Rustam maneuvers and vestibular therapy.We discussed the fact that treatment of BPPV can require anywhere from 1 to 6 treatments for successful results, and has approximately 95% success rate in eliminating symptoms. BPPV can recur and if the classic positionally induced symptoms do recur, patient can call for further referrals. I specifically recommended she see Rhiannon Carr at [facility] who is skilled at dealing with recalcitrant [...] neuropathy due to type 2 diabetes mellitus [id number] Active 2023 ROD DIALLO MD [address] [place] [address], [facility] [place], [address], [place] - [facility] 19:37:02 Type 2 diabetes mellitus 87666249 Active 2023 ROD DIALLO MD [address] [place] [address], [place], [address], [place] - [facility] [place] 19:37:51 Unsteady when walking 89390720 Active 2023 ROD DIALLO MD [address] [place] [address], [place], [address], [place] - [facility] [place] 4 19:38:05 Muscle weakness of limb 401870451 Active 2023 ROD DIALLO MD [address] [place] [address], [facility] [place], [address], [place] - [facility] [place] 19:39:46 Musculoskel etal finding 364840115 Active 2023 ROD DIALLO MD [address] [address], [place], [address], [facility] - [facility] 19:40:14 Sensorineur al hearing loss of bilateral ears 778622571 Active 2023 MAYTE LR [address] [address], [place], [address], [facility] - [facility] 4 13:29:32 Benign paroxysmal positional vertigo 645954244 Active 2023 ROD DIALLO MD [address] [address], [place], [address], [facility] 14:28:31 Problem Notes None recorded. Procedures Surgical History Date Name Laterality Status Provider Name and Address Organization Details Recorded Time 12/13/19 24 Comp Audio with Tymps - 42713 & 50695 completed MAYTE LR [address] [place] [address], [phone], [facility] - [facility] 12/13/2023 13:25:53 cholecystectomy completed Jillian Calderón [place] - [facility] 12/13/2023 13:18:28 Imaging Results None recorded. Procedure Notes None recorded. Medical Equipment None Reported. Allergies Allergen ID Allergen Name Allergen Category Reaction Reaction Severity Criticality Documentation Date Start Date Code Code System Note Provider Name and Address Organization Details Recorded Time 142450 codeine medicatio n Not available Not available Not available 12/13/2023 2670 RxNorm Jillian campos [facility] 13:17:14 Medications Name Sig Start Date Stop Date Status Note LastModified by Organization Details LastModified Time glucerna carbsteady liqd 12/12 completed Not Available Not Available Not Available azithromyci n 250 mg tablet 12/12 completed Not Available Not Available Not Available amoxicillin 500 mg tablet TAKE 2 TABLETS BY MOUTH EVERY 8 HOURS FOR 10 DAYS 12/12 completed Not Available Not Available Not Available AJAX StreetTouch Ultra Test strips USE TO TEST BLOOD [...] Details Last Updated DateTime 12/13/2023 160.02 cm 78307.89 g Jillian Calderón [place] - [facility] 12/13/2023 13:45:28 Social History None recorded. Functional [...] Diagnosis SNOMED-CT Code Diagnosis ICD10 Code Diagnosis IMO Codes Diagnosis Note [id number] ROD DIALLO MD [facility] [address] [address] 12/13/2023 12:47:56 12/13/2023 14:41:23 Peripheral neuropathy due to type 2 diabetes mellitus 8963382783 107 E11.42 Type 2 viji betes mellitus 12318143 E11.49 Unsteady when walking 22 588434 R26.89 Musculoske letal finding 254174456 R29.898 Sensorineu ral hearing loss of bilateral ears 093260669 H90.3 Audiologic al evaluation results:Ri ght ear:Mild [...] and accidents. Benign par oxysmal positional vertigo 528971237 H81.12 Health Concerns Section Related Observation LastModified by Organization Detai ls LastModified Time None Recorded Concern Status LastModified by Organization Details LastModified Time None Recorded Advance Directives Directive None Recorded Payers Insurance Date Sequence Insurance Name Policy Number Policy Lauren Covered Member ID Lauren Member ID Guarantor Name 07/31/[address] [facility] - DUAL ELIGIBLE - [employer] - SENIOR PLAN (MEDICARE REPLACEMENT/ ADVANTAGE - HMO) Joi Velasco [id number] Joi Velasco Notes Date Note Type Note Provider Name and Address Organization Details Recorded Time 12/13/2023 text/html 78-year-old female with history of diabetes and diabetic neuropathy, [...] unsteady on her feet. ROD DIALLO MD [address] [place] [address], [phone], [facility] - [facility] 12/13/2023 14:44:35 OBGyn Episode No OBEpisode recorded.
[2025-03-14 18:06] LABS: Anion Gap 11 (12-20); Blood Urea Nitrogen 15 mg/dL (9-16); Calcium 9.5 mg/dL (8.4-10.2); Carbon Dioxide 28 mmol/L (22-29); Chloride 105 mmol/L (96-108); Estimated Glomerular Filt Rate > 60; Potassium 4.1 mmol/L (3.3-5.1); Sodium 140 mmol/L (135-145)
== END 2025-03-14 15:24 | disposition home or self-care (01) ==
LOC: HO.WFDLDS 15:23
PROVIDERS: Visit Provider Family Medicine
DX: Z00.00 Encounter for general adult medical examination without abnormal findings (principal); R53.81 Other malaise; R23.2 Flushing
CPT/HCPCS: 36415; 80048; 81001; 84443; 85025; 85652; 86141

== ENCOUNTER 2025-03-20 15:31 | Outpatient (AMB) | payer OTHER, SELFPAY ==
--- NOTE | 2025-03-20 15:35 | A.OFFPC_ITS ---
Vital Signs 03/20/25 15:43 Height 5 ft 3 in Weight 145 lb 6 oz BMI 25.7 BP 116/70 Blood Pressure Location Lt brachial Position Sitting Respiration 15 Pulse 76 Pulse Source Pulse Oximeter Temp 97 F Temp Source Temporal Artery Scan Pulse Oximetry (%) 95 Oxygen Delivery Method Room Air Intake Visit Reasons: f/u labs, echocardiogram Intake Note: Joi presents in the office today to review her recent labs. Patient has echocardiogram scheduled for 03/28/2025. Cardiology appt is in August was advised to be referred elsewhere to see if she could get in sooner. Allergies codeine Allergy (Unknown, Verified 03/20/25 15:41) Unknown Medication List - Last Reconciled 03/20/25 by Yonny Tripathi MD back brace As directed blood sugar diagnostic (FreeStyle Lite Strips) Test Blood sugar 1-2 times a day, As directed, 90 days blood sugar diagnostic (OneTouch Ultra Test strips) To Test Blood Sugar 2 times a day, As directed, 90 days blood-glucose meter As directed 2 to 3 times per day blood-glucose meter (FreeStyle Lite Meter kit) Test blood sugar As directed, 999 days blood-glucose meter (OneTouch Ultra2 Meter) To test Blood sugar As directed, 999 days cholecalciferol (vitamin D3) 50 mcg PO DAILY 90 days glipizide ER 10 mg PO QAM 90 days lancets (OneTouch UltraSoft 2 Lancet) test blood sugar bid as directed, 90 days lisinopril 2.5 mg PO DAILY 90 days meclizine 25 mg PO DAILY PRN 90 days mecobalamin (vitamin B12) 1,000 mcg sublingual DAILY 30 days metformin 1,000 mg PO DAILY 90 days nut.tx.gluc.intol,lac-free,soy (Glucerna oral liquid) 1 ea PO BID 30 days pravastatin 20 mg PO BEDTIME 90 days sitagliptin phosphate (Januvia) 100 mg PO DAILY 90 days walker (Ultra-Light Rollator mis) Rollator Walker with seat and brakes (purple). Daily As directed. 999 days. Tobacco use date assessed: 03/20/25 Dental Screening Dental Screen Date: 03/20/25 Did you have a dental visit in the last 12 months?: Yes Did you have a dental problem in the last 6 months where you did not have access to dental care?: No Was dental information given to patient?: Patient has dentist HPI f/u labs, echocardiogram HPI Details 79 y/o female presents to f/u labs, echo cardiogram. Echocardiogram is scheduled next week. Had been having complaints of flushing, especially in the morning. Pt reports abd. discomfort/distension. Denies any fevers. Notes some bruising of her toes. Denies any injury to it. [facility] Medical History (Updated 03/20/25 @ 16:24 by Yonny Tripathi MD) DDD (degenerative disc disease), lumbosacral Lumbar spondylitis Chronic lower back pain Bilateral hand pain Type 2 diabetes mellitus Anxiety Depression Surgical History No pertinent past surgical history Family History Sister Substance abuse Social History (Updated 03/20/25 @ 15:43 by Jacqueline Garcia CMA) Housing: Apartment Alcohol intake: never Patient Tobacco Use Status: Former Tobacco user e-Cigarette/Vaping Use: Never Used Second Hand Smoke Exposure: No service: No Current occupational status: retired Cognitive needs: No Hearing needs: No Vision needs: No (needs to have eyes checked.) Questionnaire PHQ-9 Over the last 2 weeks, how often have you been bothered by any of the following problems? 1. Little interest or pleasure in doing things: nearly every day 2. Feeling down, depressed, or hopeless: nearly every day 3. Trouble falling or staying asleep, or sleeping too much: nearly every day 4. Feeling tired or having little energy: nearly every day 5. Poor appetite or overeating: not at all 6. Feeling bad about yourself - or that you are a failure or have let yourself or your family down: not at all 7. Trouble concentrating on things, such as reading the newspaper or watching television: not at all 8. Moving or speaking so slowly that other people could have noticed. Or the opposite - being so fidgety or restless that you have been moving around a lot more than usual: not at all 9. Thoughts that you would be better off or of hurting yourself in some way: not at all Total score: 12 Source: Developed by Drs. Adrianna Woodruff, Fabio Gastelum and colleagues, with an educational carmen from [employer]. Thrive Questionnaire Date Thrive assessed: 03/28/24 I am a: Patient What is your living situation today?: I have a steady place to live Within the past 12 months, did the food you bought not last and you didn't have the money to get more?: Sometimes True Within the past 12 months, did you worry whether your food would run out before you got money to buy more?: Sometimes True Do you have trouble paying for medicines?: No Do you have trouble getting transportation to medical appointments?: No Do you have trouble paying your heating and electricity bill?: No Do you have trouble taking care of your child, family member or friend?: No Do you have trouble with day-to-day activities such as bathing, preparing meals, shopping, managing finances, etc.?: No Are you currently unemployed and looking for a job?: No Are you interested in more education?: No Please select the resources that you would like help with: None Currently or been in a relationship where the following occur: No concerns reported THRIVE Score: 2 AUDIT C Alcohol Use Questionnaire (AUDIT-C) 1. How often do you have a drink containing alcohol?: Never Total Score: 0 HANDY-7 AMB Questionnaire HANDY-7 Feeling nervous, anxious, or on edge: 3 = Nearly every day Not being able to stop or control worryin = Nearly every day Worrying too much about different things: 3 = Nearly every day Trouble relaxin = Several days Being so restless that it is hard to sit still: 0 = Not at all Becoming easily annoyed or irritable: 1 = Several days Feeling afraid as if something awful might happen: 1 = Several days Total HANDY-7 score (0-4 normal; 5-9 mild; 10-14 moderate; 15-21 severe): 12 Source: Developed by Adrianna Bedolla, Fabio Gastelum and colleagues, with an educational carmen from [employer]. Review of Systems Const Denies chills, Denies fatigue, Denies fever(s), Denies headache(s) and Denies weakness ENT Denies dizziness and Denies headache(s) Card Denies dyspnea Resp Denies cough, Denies dyspnea, Denies wheezing and Denies other (shortness of breath) Musc Denies numbness and Denies tingling Neuro Denies dizziness, Denies headache(s), Denies numbness, Denies tingling and Denies weakness Psych Denies anxiety and Denies depression Endo Denies fatigue Aller/Immun Denies wheezing Physical exam (Primary Care) Vital Signs: Last Vital Signs Temp 97 F 03/20/25 15:43 Pulse 76 03/20/25 15:43 Resp 15 03/20/25 15:43 BP 116/70 03/20/25 15:43 Pulse Ox 95 03/20/25 15:43 Oxygen Delivery Method Room Air 03/20/25 15:43 BMI result Body Mass Index 25.7 Tobacco/Smoking Status: Tobacco use Status Tobacco use date assessed 03/20/25 03/20/25 15:46 Patient Tobacco Use Status Former Tobacco user 03/20/25 15:43 e-Cigarette/Vaping Use Never Used 03/20/25 15:43 PHQ-9: PHQ-9 Score PHQ-9: Total score 12 03/20/25 16:11 Thrive Assessment: Date of Thrive Assessment Date Thrive assessed 03/28/24 03/20/25 15:37 Currently or been in a relationship where the following occur: No concerns reported Const General: well developed; No acute distress Nutritional Appearance: well nourished Orientation/consciousness: patient oriented x3 HENMT Head: Yes normocephalic and Yes atraumatic Eyes General: appearance normal, both eyes and all related structures Pupils: Equal, round and reactive pupils present EOM: EOMs intact bilaterally Resp Effort & Inspection: normal respiratory effort Auscultation: clear to auscultation bilaterally Cardio Rate: regular rate Rhythm: regular rhythm Heart sounds: S1 normal heart sound present, S2 normal heart sound present, no gallops, no murmurs and no rubs GI Other: Diffuse tenderness of abdomen with rebound tenderness Neuro General: patient oriented x3 and gait normal Cranial nerves: Yes Equal, round and reactive pupils present Psych Affect: normal affect Coding Level of Care Code Est Pt Level 4 (95091) Diagnoses Flushing R23.2 Abnormal EKG R94.31 Abdominal distension R14.0 Abdominal pain R10.9 Assessment & Plan Assessment & Plan (1) Flushing: Code(s): R23.2 - Flushing Category: Medical (2) Abnormal EKG: Code(s): R94.31 - Abnormal electrocardiogram [ECG] [EKG] Category: Medical (3) Abdominal distension: Code(s): R14.0 - Abdominal distension (gaseous) Category: Medical (4) Abdominal pain: Code(s): R10.9 - Unspecified abdominal pain Category: Medical Plan Ongoing flushing. Sed rate and CRP are elevated Checking additional labs. Previous abnormal EKG. Had referred her to Cardiology but she declined this. Checking an echocardiogram which is scheduled for next week. Abdominal pain and distention Diffuse tenderness of abdomen with some rebound tenderness No fevers or chills. Based on exam, sending patient for CT abdomen. Will call patient with results Orders: Orders Angiotensin Converting Enzyme Today R23.2 - Flushing Follicle Stimulating Hormone Today R23.2 - Flushing Lutenizing Hormone Today R23.2 - Flushing Comprehensive [place]. Panel Fast Today R10.9 - Unspecified abdominal pain, Z00.00 - Encounter for general adult medical examination without abnormal findings Complete Blood Count Auto Diff Today R10.9 - Unspecified abdominal pain, Z00.00 - Encounter for general adult medical examination without abnormal findings Lipase Today R10.9 - Unspecified abdominal pain KANDICE Reflex Titer and Pattern Today R23.2 - Flushing CT abdomen pelvis wo IV con Today R10.9 - Unspecified abdominal pain, R14.0 - Abdominal distension (gaseous) Estrogen Today R23.2 - Flushing Cortisol Random Today R23.2 - Flushing Lactate Dehydrogenase Today R10.9 - Unspecified abdominal pain
[2025-03-20 15:43] VITALS: BP 116/70; PULSE 76; RESP 15; TEMP 36.1; O2SAT 95; BMI 25.7
--- OUTSIDE RECORDS SUMMARY | 2025-03-20 18:24 | XMS_ITS | Data Portability ---
Author Organization [place] - [facility], Allergy Address [address] [address] Care Team Providers Care Cook Fast Food Name Role Phone JOHNSON PATRICIO Primary Care [...] factor here appears to be left BPPV. [place]-Hallpike was positive for vertigo and rotary nystagmus with the head to the left. We discussed that the patient s pattern of symptoms and physical exam findings are most consistent with benign paroxysmal positional vertigo (BPPV). The pathophysiology of BPPV was discussed in detail. Patient was provided with a referral to [facility] for Rustam maneuvers and vestibular therapy.We discussed the fact that treatment of BPPV can require anywhere from 1 to 6 treatments for successful results, and has approximately 95% success rate in eliminating symptoms. BPPV can recur and if the classic positionally induced symptoms do recur, patient can call for further referrals. I specifically recommended she see Rhiannon Carr at [facility] who is skilled at dealing with [...] neuropathy due to type 2 diabetes mellitus 4290511301141 Active 2023 ROD DIALLO MD [address] [place] [address], [facility] [place], [address], [place] - [facility] 19:37:02 Type 2 diabetes mellitus 84343058 Active 2023 ROD DIALLO MD [address] [place] [address], [place], [address], [place] - [facility] [place] 19:37:51 Unsteady when walking 63123468 Active 2023 ROD DIALLO MD [address] [place] [address], [place], [address], [place] - [facility] [place] 4 19:38:05 Muscle weakness of limb 268918688 Active 2023 ROD DIALLO MD [address] [place] [address], [place], [address], [place] - [facility] [place] 19:39:46 Musculoskel etal finding 857441548 Active 2023 ROD DIALLO MD [address] [address], [place], [address], [facility] - [facility] 19:40:14 Sensorineur al hearing loss of bilateral ears 722004005 Active 2023 MAYTE LR [address] [address], [place], [address], [facility] - [facility] 4 13:29:32 Benign paroxysmal positional vertigo 952063262 Active 2023 ROD DIALLO MD [address] [address], [place], [address], [facility] 14:28:31 Problem Notes None recorded. Procedures Surgical History Date Name Laterality Status Provider Name and Address Organization Details Recorded Time 12/13/19 24 Comp Audio with Tymps - 65278 & 11477 completed MAYTE LR [address] [place] [address], [address], [facility] - [facility] 12/13/2023 13:25:53 cholecystectomy completed Jillian Calderón [place] - [facility] 12/13/2023 13:18:28 Imaging Results None recorded. Procedure Notes None recorded. Medical Equipment None Reported. Allergies Allergen ID Allergen Name Allergen Category Reaction Reaction Severity Criticality Documentation Date Start Date Code Code System Note Provider Name and Address Organization Details Recorded Time 173270 codeine medicatio n Not available Not available Not available 12/13/2023 2670 RxNorm Jillian campos [facility] 13:17:14 Medications Name Sig Start Date [...] completed Not Available Not Available Not Available LolaboxTouch Ultra Test strips USE TO TEST BLOOD [...] Details Last Updated DateTime 12/13/2023 160.02 cm 03135.89 g Jillian Calderón [place] - [facility] 12/13/2023 13:45:28 Social History None recorded. [...] ICD10 Code Diagnosis IMO Codes Diagnosis Note [id number] ROD DIALLO MD [facility] [address] [address] 12/13/2023 12:47:56 12/13/2023 14:41:23 Peripheral neuropathy due to type 2 diabetes mellitus 0493150312 107 E11.42 Type 2 viji betes mellitus 18750414 E11.49 Unsteady when walking 22 210584 R26.89 Musculoske letal finding 744892104 R29.898 Sensorineu ral hearing loss of bilateral ears 755993126 H90.3 Audiologic al evaluation results:Ri ght ear:Mild [...] and accidents. Benign par oxysmal positional vertigo 086352951 H81.12 Health Concerns Section Related Observation LastModified by Organization Detai ls LastModified Time None Recorded Concern Status LastModified by Organization Details LastModified Time None Recorded Advance Directives Directive None Recorded Payers Insurance Date Sequence Insurance Name Policy Number Policy Lauren Covered Member ID Lauren Member ID Guarantor Name 07/31/[address] [facility] - DUAL ELIGIBLE - [employer] - SENIOR PLAN (MEDICARE REPLACEMENT/ ADVANTAGE - HMO) Joi Velasco [id number] Joi Velasco Notes Date Note Type Note [...] unsteady on her feet. ROD DIALLO MD [address] [place] [address], [address], [facility] - [facility] 12/13/2023 14:44:35 OBGyn Episode No OBEpisode recorded.
== END 2025-03-20 16:29 | disposition home or self-care (01) ==
LOC: HO.HMCFM 15:32
PROVIDERS: PCP Family Medicine; Visit Provider Family Medicine
DX: R23.2 Flushing (principal); R94.31 Abnormal electrocardiogram [ECG] [EKG]; R14.0 Abdominal distension (gaseous); R10.9 Unspecified abdominal pain

== ENCOUNTER 2025-03-28 11:15 | Outpatient (REF) | payer OTHER, SELFPAY ==
--- NOTE | ~2025-03-28 | CT_ITS ---
EXAMINATION: CT ABDOMEN AND PELVIS WITHOUT CONTRAST CLINICAL INFORMATION: Unspecified abdominal pain COMPARISON: None available. TECHNIQUE: Multidetector volumetric imaging was performed from the superior aspect of the liver through the pubic symphysis. Sagittal and coronal reformatted images were obtained on the technologist's workstation. This CT examination was performed using dose optimization techniques as appropriate, variously including the following: *Automated exposure control *Adjustment of mA and/or kV according to patient size (this includes techniques or standardized protocols for targeted exams where dose is matched to indication/reason for exam; i.e. extremities or head) *Use of iterative reconstruction technique FINDINGS: LUNG BASES: The visualized lung bases are unremarkable. LIVER, GALLBLADDER, AND BILIARY TREE: Hepatomegaly. Right lobe measures 19.2 cm. Small calcification in the inferior right lobe.. No focal hepatic lesion or biliary ductal dilatation is present. Status postcholecystectomy. No evidence of abnormal CBD dilatation. PANCREAS: Unremarkable. No acute inflammatory changes. No ductal dilatation is seen. SPLEEN: Unremarkable. ADRENAL GLANDS: Unremarkable. KIDNEYS AND URETERS: No renal or ureteral calculi seen. No hydronephrosis. 3 cm cystic focus along the inferior aspect of kidney, probable exophytic cysts. No significant perinephric stranding. BLADDER: Fluid-filled bladder. No calculi seen. GASTROINTESTINAL TRACT: Stomach has luminal contents. Moderate-large volume stool in the colon. Scattered colonic diverticuli, without evidence of diverticulitis. Appendix is not visualized. No right lower quadrant inflammatory changes seen. Peritoneum: No free fluid. No free air. No significant mesenteric inflammatory changes. ABDOMINAL WALL: No significant hernia is appreciated. LYMPH NODES: No pathologically enlarged lymph nodes seen. VASCULAR: No aneurysmal dilatation of the abdominal aorta. Atherosclerotic vascular calcification is seen. PELVIC VISCERA: Coarse calcifications in the uterus, probable calcified fibroids. No suspicious adnexal finding seen. OSSEOUS STRUCTURES: Spondylosis in the visualized spine. No aggressive osseous process seen. CT/CT abdomen pelvis wo IV con IMPRESSION: * Hepatomegaly. No suspicious liver lesions. * Moderate-large volume stool in the colon. Scattered diverticulosis without evidence of diverticulitis. * Status postcholecystectomy *Cause of the patient's symptoms has not been determined by CT. * Additional findings and details as above Fleischner guidelines were followed. Electronically signed by: Alo Moss MD 03/28/2025 12:05 PM EST RP
[2025-03-28 11:52] LABS: MANUAL DIFF FLAG NO
[2025-03-28 12:22] LABS: Hematocrit 38.7 % (37.0-47.0); Hemoglobin 12.7 g/dl (12.0-16.0); Imm Gran Abs Auto 0.05 X10*3/uL (0.00-0.03); Imm Gran Pct Auto 0.6 % (0.0-0.4); Lymphocytes Absolute Auto 1.8 X10*3/uL (1.2-4.9); Mean Corpuscular HGB Conc 32.8 g/dl (31.0-35.0); Mean Corpuscular Hemoglobin 29.3 pg (27.0-33.0); Mean Corpuscular Volume 89.4 fL (80.0-98.0); NRBC Abs Auto 0.000 X10*3/uL (0.0-0.012); NRBC Pct Auto 0.0 /100WBC (0.0-0.2); Platelet Count 225 X10*3/uL (160-400); Red Blood Count 4.33 X10*6/uL (4.20-5.50); White Blood Count 8.7 X10*3/uL (4.8-10.8)
[2025-03-28 12:37] LABS: Appearance Urine Clear; Glucose Urine UA Negative (Negative); PH 6.0 (5.0-9.0); Specific Gravity - Urine 1.010 (1.005-1.025)
--- NOTE | 2025-03-28 12:47 | CA_ITS ---
Transthoracic Echocardiogram Patient (Last, First, Middle): Joi Velasco, Gender: Female Date of : 1945 Age: 79 Procedure Date: 03/28/2025 Procedure Type: Transthoracic Echocardiogram Location: OP Height: 160.02 cm Weight: 65.77 kg BSA: 1.69 m2 Heart Rate: bpm BP: 116 / 70 mmHg Clinical Office Technician: SHOSHANA Referring MD: Yonny Tripathi MD Metal Shaping Machine Operator: Rod Yen MD Symptoms: R94.31 - Abnormal electrocardiogram [ECG] [EKG] Study Quality: Adequate ECG Rhythm: Sinus Conclusions: - 1. Normal LV ejection fraction 55-60% with grade 1 diastolic dysfunction 2. Mild aortic stenosis and regurgitation 3. Normal RV systolic pressure 4. No gross pericardial effusion Findings Left Ventricle Normal left ventricular size, thickness, and systolic function. The visually estimated ejection fraction is between 55-60%. Spectral Doppler is indicative of an impaired relaxation filling pattern. E/E prime ratio is <8, consistent with normal filling pressures. Evidence suggests grade I (mild) diastolic dysfunction. Right Ventricle Normal right ventricular cavity size and systolic function. Atria The left atrium is normal in size. There is no evidence of interatrial shunt. The right atrium is normal in size. Aortic Valve The aortic valve was not well visualized. There is mild calcification of the aortic valve. The peak aortic velocity is 1.71 m/s with a calculated peak gradient of 12 mmHg. The mean gradient is 6 mmHg. The aortic valve area is 1.88 cm2. There is mild aortic valve regurgitation. Mitral Valve There is mild anterior and moderate posterior mitral leaflet thickening. There is moderate mitral annular calcification. There is trace mitral valve regurgitation. There is no mitral valve stenosis. Pulmonic Valve The pulmonic valve was not well visualized. Tricuspid Valve Likely normal tricuspid valve structure and function. There is trace tricuspid valve regurgitation. The right ventricular systolic pressure is normal. The right ventricular systolic pressure is 20 mmHg. Normal right atrial pressure. There is no evidence of pulmonary hypertension. Great Vessels All visible segments of the aorta are normal in size. The pulmonary artery was not well visualized. There is no dilatation of the ascending aorta measuring 3.10 cm. Venous The inferior vena cava is normal in size and collapses greater than 50% with inspiration. Pericardium/Pleural Prominent epicardial adipose tissue noted. There is no evidence of pericardial effusion. Prior Study Comparison No prior study available for comparison. Measurements 2D Linear Measurements IVSd: 0.91 0.6-0.9/0.6-1.0 cm LVIDd: 4.48 3.9-5.3/4.2-5.9 cm LVIDd Index: 2.65 2.4-3.2/2.2-3.1 cm/m2 LVIDs: 3.30 2.0-3.6 cm LVPWd: 0.95 0.7-1.1 cm LA Diam: 2.90 2.7-3.8/3.0-4.0 cm LAIDs Index: 1.72 1.5-2.3 cm/m2 LV Mass: 172.15 67-162/88-224 g LV Mass Index: 101.86 43-95/49-115 g/m2 LVOT Diam: 1.90 3.0+(-)1.3 cm 2D Systolic Function EF 4C: 54.80 >55% EF 2C: 59.90 >55% EF BiP: 59.70 >55% Mitral Valve MV Pk E: 0.59 MV PK A: 1.31 MV Decel Time: 239.00 E/A: 0.50 E'Lateral: 3.26 E'Medial: 4.03 E/E' Med: 14.70 E/E' Lat: 18.10 PHT: 70.00 MVA PHT: 3.14 Decel Rains: 2.48 Aortic Valve AoV Pk Eliezer: 1.71 AoV Mn Eliezer: 1.14 AoV VTI: 0.34 AoV Pk Grad: 12.00 Aov Mn Grad: 6.00 ALMA Cont.VTI: 1.88 AI Pk Eliezer: 3.29 AI Rains: 1.98 LVOT LVOT Pk Eliezer: 1.12 LVOT Mn Eliezer: 0.78 LVOT VTI: 0.23 LVOT Pk Grad: 5.00 LVOT Mn Grad: 3.00 LVOT Diam: 1.90 LVOT Area: 2.84 Diastolic Function MV Pk E: 0.59 MV Pk A: 1.31 E/A: 0.50 E'Medial: 4.03 E/E' Med: 14.70 E' Laterial: 3.26 E/E' Lat: 18.10 Right Ventricle TAPSE (mm): 21.10 TVS' Eliezer: 12.00 Tricuspid Valve TR Pk Eliezer: 2.05 TR Pk Grad: 17.00 RA Press: 3.00 RVSP: 20.00 Great Vessels Aorta Sinus of Valsalva: 3.15 2.0-3.5 cm Ao Asc: 3.10 2.1-3.4 cm Pulmonary Veins Pulm Vein S/D 1.60 Updated in Other Vendor System with Status of Final Rod Yen MD electronically signed on 03/29/2025 2:44:02 PM with status of Final
[2025-03-28 12:52] LABS: Alanine Aminotransferase 13 U/L (0-31); Albumin Level 4.5 g/dL (3.5-5.0); Alkaline Phosphatase 63 U/L (39-117); Anion Gap 13 (12-20); Aspartate Amino Transferase 18 U/L (5-31); Blood Urea Nitrogen 14 mg/dL (9-16); Calcium 9.8 mg/dL (8.4-10.2); Carbon Dioxide 26 mmol/L (22-29); Chloride 105 mmol/L (96-108); Estimated Glomerular Filt Rate > 60; Lipase 41 U/L (8-78); Potassium 4.5 mmol/L (3.3-5.1); Sodium 139 mmol/L (135-145); Total Protein 7.2 g/dL (6.5-8.0)
--- OUTSIDE RECORDS SUMMARY | 2025-03-28 14:10 | XMS_ITS | Data Portability ---
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 Zamora-Hallpike was positive for vertigo and rotary nystagmus with the head to the left. We discussed that the patient s pattern of symptoms and physical exam findings are most consistent with benign paroxysmal positional vertigo (BPPV). The pathophysiology of BPPV was discussed in detail. Patient was provided with a referral to [facility] for Rustam maneuvers and vestibular therapy.We discussed the fact that treatment of BPPV can require anywhere from 1 to 6 treatments for successful results, and has approximately 95% success rate in eliminating symptoms. BPPV can recur and if the classic positionally induced symptoms do recur, patient can call for further referrals. I specifically recommended she see Rhiannon Carr at [facility] who is skilled at dealing with recalcitrant BPPV. [email or web address] Not available 12/13/2023 14:43:35 Plan of Treatment [...] neuropathy due to type 2 diabetes mellitus [id number] Active 2023 ROD DIALLO MD [address] [place] [address], [facility] [place], [address], [place] - [facility] 19:37:02 Type 2 diabetes mellitus 42458763 Active 2023 ROD DIALLO MD [address] [place] [address], [place], [address], [place] - [facility] 19:37:51 Unsteady when walking 31341515 Active 2023 ROD DIALLO MD [address] [place] [address], [place], [address], [place] - [facility] 4 19:38:05 Muscle weakness of limb 049876893 Active 2023 ROD DIALLO MD [address] [place] [address], [facility] [place], [address], [place] - [facility] 19:39:46 Musculoskel etal finding 742418167 Active 2023 ROD DIALLO MD [address] [address], [place], [address], [facility] - [facility] 19:40:14 Sensorineur al hearing loss of bilateral ears 303225460 Active 2023 MAYTE [facility] [address] [address], [place], [address], [facility] - [facility] 4 13:29:32 Benign paroxysmal positional vertigo 550433868 Active 2023 ROD DIALLO MD [address] [address], [place], [address], [facility] 14:28:31 Problem Notes None recorded. Procedures Surgical History Date Name Laterality Status Provider Name and Address Organization Details Recorded Time 12/13/19 24 Comp Audio with Tymps - 67810 & 35400 completed MAYTE LR [address] [place] [address], [phone], [facility] - [facility] 12/13/2023 13:25:53 cholecystectomy completed Jillian Calderón [place] - [facility] 12/13/2023 13:18:28 Imaging Results None recorded. Procedure Notes None recorded. Medical Equipment None Reported. Allergies Allergen ID Allergen Name Allergen Category Reaction Reaction Severity Criticality Documentation Date Start Date Code Code System Note Provider Name and Address Organization Details Recorded Time 714732 codeine medicatio n Not available Not available Not available 12/13/2023 2670 RxNorm Jillian campos [facility] 13:17:14 Medications Name Sig Start Date [...] completed Not Available Not Available Not Available AskYouTouch Ultra Test strips USE TO TEST BLOOD [...] Details Last Updated DateTime 12/13/2023 160.02 cm 63045.89 g Jillian Calderón [place] [facility] 12/13/2023 13:45:28 Social History None recorded. [...] ICD10 Code Diagnosis IMO Codes Diagnosis Note [id number] ROD DIALLO MD [facility] [address] [address] 12/13/2023 12:47:56 12/13/2023 14:41:23 Peripheral neuropathy due to type 2 diabetes mellitus 6732456874 107 E11.42 Type 2 viji betes mellitus 62318496 E11.49 Unsteady when walking 22 077217 R26.89 Musculoske letal finding 798449615 R29.898 Sensorineu ral hearing loss of bilateral ears 052936297 H90.3 Audiologic al evaluation results:Ri ght ear:Mild [...] and accidents. Benign par oxysmal positional vertigo 250701574 H81.12 Health Concerns Section Related Observation LastModified by Organization Detai ls LastModified Time None Recorded Concern Status LastModified by Organization Details LastModified Time None Recorded Advance Directives Directive None Recorded Payers Insurance Date Sequence Insurance Name Policy Number Policy Lauren Covered Member ID Lauren Member ID Guarantor Name 07/31/[address] [facility] - DUAL ELIGIBLE - [employer] - SENIOR PLAN (MEDICARE REPLACEMENT/ ADVANTAGE - HMO) Joi Velasco [id number] Joi Velasco Notes Date Note Type Note [...] unsteady on her feet. ROD DIALLO MD [address] [place] [address], [phone], [facility] - [facility] 12/13/2023 14:44:35 OBGyn Episode No OBEpisode recorded.
[2025-03-29 05:48] LABS: Follicle Stimulating Hormone 88.8 mIU/mL
== END 2025-03-28 11:16 | disposition home or self-care (01) ==
LOC: HO.CT 11:15
PROVIDERS: PCP Family Medicine; Visit Provider Family Medicine
DX: R10.9 Unspecified abdominal pain (principal); R14.0 Abdominal distension (gaseous); R23.2 Flushing; R94.31 Abnormal electrocardiogram [ECG] [EKG]; Z00.00 Encounter for general adult medical examination without abnormal findings
CPT/HCPCS: 36415; 74176; 80053; 81003; 82164; 82533; 82672; 83001; 83002; 83615; 83690; 83835; 85025; 86038; 93306

== ENCOUNTER → 2025-03-28 11:18 | Outpatient (BNV) | payer OTHER, SELFPAY | PROVIDERS: PCP Family Medicine; Visit Provider Radiology Diagnostic Ultrasound | DX: R16.0 Hepatomegaly, not elsewhere classified (principal); K57.30 Diverticulosis of large intestine without perforation or abscess without bleeding | CPT/HCPCS: 74176 ==

== ENCOUNTER → 2025-03-28 12:47 | Outpatient (BNV) | payer OTHER, SELFPAY | PROVIDERS: PCP Family Medicine; Visit Provider Internal Medicine Cardiovascular Disease | DX: I35.0 Nonrheumatic aortic (valve) stenosis (principal); I35.1 Nonrheumatic aortic (valve) insufficiency | CPT/HCPCS: 93306 ==

== ENCOUNTER 2025-04-02 10:43 | Outpatient (AMB) | payer OTHER, SELFPAY ==
--- NOTE | 2025-04-02 10:50 | MHC.PC.OV ---
Vital Signs 04/02/25 10:55 Height 5 ft 3 in Weight 146 lb 2 oz BMI 25.9 BP 118/70 Blood Pressure Location Rt brachial Position Sitting Respiration 15 Pulse 85 Pulse Source Pulse Oximeter Temp 97.2 F Temp Source Temporal Artery Scan Pulse Oximetry (%) 97 Oxygen Delivery Method Room Air Intake Visit Reasons: f/u abd. distension, labs Intake Note: Joi presents in the office today for a follow up to labs and abdominal distension. Allergies codeine Allergy (Unknown, Verified 04/02/25 10:52) Unknown Tobacco use date assessed: 04/02/25 Dental Screening Dental Screen Date: 04/02/25 Did you have a dental visit in the last 12 months?: Yes Did you have a dental problem in the last 6 months where you did not have access to dental care?: No Was dental information given to patient?: Patient has dentist HPI f/u abd. distension, labs HPI Details 79 y/o female presents to f/u abd.distension,labs. CT scan ordered for abd. pain. CT scan impression: * Hepatomegaly. No suspicious liver lesions. * Moderate-large volume stool in the colon. Scattered diverticulosis without evidence of diverticulitis. * Status postcholecystectomy *Cause of the patient's symptoms has not been determined by CT. [facility] Medical History (Updated 03/20/25 @ 16:24 by Yonny Tripathi MD) DDD (degenerative disc disease), lumbosacral Lumbar spondylitis Chronic lower back pain Bilateral hand pain Type 2 diabetes mellitus Anxiety Depression Surgical History No pertinent past surgical history Family History Sister Substance abuse Social History (Updated 04/02/25 @ 10:54 by Jacqueline Garcia CMA) Housing: Apartment Alcohol intake: never Patient Tobacco Use Status: Former Tobacco user e-Cigarette/Vaping Use: Never Used Second Hand Smoke Exposure: No Use of substances other than those prescribed or required for medical reasons: No service: No Current occupational status: retired Cognitive needs: No Hearing needs: No Vision needs: No (needs to have eyes checked.) Questionnaire Thrive Questionnaire Date Thrive assessed: 03/20/25 I am a: Patient What is your living situation today?: I have a steady place to live Within the past 12 months, did the food you bought not last and you didn't have the money to get more?: Sometimes True Within the past 12 months, did you worry whether your food would run out before you got money to buy more?: Sometimes True Do you have trouble paying for medicines?: No Do you have trouble getting transportation to medical appointments?: No Do you have trouble paying your heating and electricity bill?: No Do you have trouble taking care of your child, family member or friend?: No Do you have trouble with day-to-day activities such as bathing, preparing meals, shopping, managing finances, etc.?: No Are you currently unemployed and looking for a job?: No Are you interested in more education?: No Please select the resources that you would like help with: None Currently or been in a relationship where the following occur: No concerns reported THRIVE Score: 2 Review of Systems Const Denies chills, Denies fatigue, Denies fever(s), Denies headache(s) and Denies weakness ENT Denies dizziness and Denies headache(s) Card Denies dyspnea Resp Denies cough, Denies dyspnea, Denies wheezing and Denies other (shortness of breath) GI Reports abdominal pain Musc Denies numbness and Denies tingling Neuro Denies dizziness, Denies headache(s), Denies numbness, Denies tingling and Denies weakness Psych Denies anxiety and Denies depression Endo Denies fatigue Aller/Immun Denies wheezing Physical exam (Primary Care) Vital Signs: Last Vital Signs Temp 97.2 F 04/02/25 10:55 Pulse 85 04/02/25 10:55 Resp 15 04/02/25 10:55 BP 118/70 04/02/25 10:55 Pulse Ox 97 04/02/25 10:55 Oxygen Delivery Method Room Air 04/02/25 10:55 BMI result Body Mass Index 25.9 Tobacco/Smoking Status: Tobacco use Status Tobacco use date assessed 04/02/25 04/02/25 10:58 Patient Tobacco Use Status Former Tobacco user 04/02/25 10:54 e-Cigarette/Vaping Use Never Used 04/02/25 10:54 Thrive Assessment: Date of Thrive Assessment Date Thrive assessed 03/20/25 04/02/25 10:50 Currently or been in a relationship where the following occur: No concerns reported Const General: well developed; No acute distress Nutritional Appearance: well nourished Orientation/consciousness: patient oriented x3 [facility] Head: Yes normocephalic and Yes atraumatic Eyes General: appearance normal, both eyes and all related structures Pupils: Equal, round and reactive pupils present EOM: EOMs intact bilaterally Resp Effort & Inspection: normal respiratory effort GI Auscultation: normal bowel sounds Neuro General: patient oriented x3 and gait normal Cranial nerves: Yes Equal, round and reactive pupils present Psych Affect: normal affect Coding Level of Care Code Est Pt Level 3 (59120) Diagnoses Abdominal pain R10.9 Assessment & Plan Assessment & Plan (1) Abdominal pain: Code(s): R10.9 - Unspecified abdominal pain Category: Medical Plan: Ongoing abdominal discomfort and bloating. CT scan shows moderate to large stool burden but no other acute abnormalities. Sent script for Dulcolax and MiraLax Hydrate well She will let me know if not improving or worsens
[2025-04-02 10:55] VITALS: BP 118/70; PULSE 85; RESP 15; TEMP 36.2; O2SAT 97; BMI 25.9
== END 2025-04-02 11:30 | disposition home or self-care (01) ==
LOC: HO.HMCFM 10:44
PROVIDERS: PCP Family Medicine; Visit Provider Family Medicine
DX: R10.9 Unspecified abdominal pain (principal)